=== PATIENT | male | born 1950 | race Caucasian/White ===

== ENCOUNTER → 2018-05-24 | Outpatient (CLI) | payer OTHER ==
[~2018-05-24] MED LIST: AMLO5TAB3 PO; ASPI81TA28 PO; ATEN50TA8 PO; ATOR10TA82 PO; BCTROWC TOP; CLOB-65 TOP; POTA10CA28 PO; RIVA1TAB4 PO; [UNRECOGNIZED DRUG - CODE] PO
--- NOTE | 2018-05-24 12:36 | DIAGNOSTIC IMAGING REPORT ---
CHEST 2 VIEWS ROUTINE CLINICAL HISTORY: R06.2, R00.0 WHEEZING, TACHYCARDIA. COMPARISON STUDY: No previous studies for comparison. FINDINGS: The heart is enlarged. There is subtle subpleural septal edema. There is no focal pulmonary consolidation. There are no significant pleural effusions.[ There are left-sided rib deformities, likely old. IMPRESSION: 1. Cardiomegaly and subtle subpleural septal edema 2. No evidence of focal pulmonary consolidation Electronically signed by: Natan Gonzalez M.D. 05/24/2018 12:34 PM Dictated Date/Time: 05/24/2018 12:33 PM
== END | disposition home or self-care (01) ==
LOC: C.RAD1850 12:13
PROVIDERS: ATTEND Nurse Practitioner Adult Health
DX: R00.0 Tachycardia, unspecified (principal); R06.2 Wheezing; I51.7 Cardiomegaly

== ENCOUNTER → 2018-06-09 | Outpatient (CLI) | payer BC, OTHER ==
--- NOTE | 2018-06-09 11:45 | DIAGNOSTIC IMAGING REPORT ---
ULTRASOUND KIDNEYS AND BLADDER CLINICAL HISTORY: Elevated creatinine. COMPARISON STUDY: No priors. TECHNIQUE: Real-time, grayscale, and color flow sonography of the kidneys and bladder is performed. Images are reviewed in the transverse and longitudinal planes. FINDINGS: Kidneys: The kidneys demonstrate mild cortical atrophy. The right kidney measures 10.5 x 5.1 x 4.9 cm and the left kidney measures 10.9 x 5.6 x 6.2 cm. There is no hydronephrosis. No shadowing renal calculi are identified. There are small left renal cysts measure up to 2.1 cm. There is no sonographic evidence of contour deforming renal mass lesion. No perinephric fluid is identified. Bladder: The prostate gland is mildly enlarged and heterogeneous, noting median lobe hypertrophy. The bladder wall appears thickened and trabeculated suggesting chronic outlet obstruction. Bilateral ureteral jets were seen. IMPRESSION: 1. The kidneys demonstrate mild cortical atrophy and are without hydronephrosis. 2. Prostatomegaly with evidence of chronic bladder outlet obstruction. Electronically signed by: Ankit Marvin M.D. 06/09/2018 11:43 AM Dictated Date/Time: 06/09/2018 11:42 AM
== END | disposition home or self-care (01) ==
LOC: C.ULTR 10:53
PROVIDERS: ATTEND Internal Medicine Nephrology
DX: R79.89 Other specified abnormal findings of blood chemistry (principal); N40.1 Benign prostatic hyperplasia with lower urinary tract symptoms

== ENCOUNTER → 2018-06-09 | Outpatient (CLI) | payer BC ==
[2018-06-09 09:35] LABS: MEAN CELL VOLUME 81.1 fL (80-100); MEAN CORPUSCULAR HEMOGLOBIN 28.6 pg (25-34); MEAN CORPUSCULAR HGB CONC 35.3 g/dl (32-36); MEAN PLATELET VOLUME 11.5 fL (7.4-10.4); PLATELET COUNT 187 K/uL (130-400); RED CELL DISTRIBUTION WIDTH CV 13.6 % (11.5-14.5); RED CELL DISTRIBUTION WIDTH SD 40.4 fL (36.4-46.3); WHITE BLOOD COUNT 7.43 K/uL (4.8-10.8)
[2018-06-09 09:53] LABS: ALBUMIN 4.1 gm/dl (3.4-5.0); ALKALINE PHOSPHATASE 112 U/L (45-117); ALT/SGPT 50 U/L (12-78); AST/SGOT 28 U/L (15-37); BLOOD UREA NITROGEN 26 mg/dl (7-18); CALCIUM 8.8 mg/dl (8.5-10.1); CARBON DIOXIDE 27 mmol/L (21-32); CREATININE 1.55 mg/dl (0.60-1.40); GLUCOSE 93 mg/dl (70-99); POTASSIUM 3.3 mmol/L (3.5-5.1); SODIUM 142 mmol/L (136-145); TOTAL PROTEIN 7.2 gm/dl (6.4-8.2)
== END | disposition home or self-care (01) ==
LOC: C.LAB1850 08:18
PROVIDERS: ATTEND Internal Medicine Nephrology
DX: R79.89 Other specified abnormal findings of blood chemistry (principal)

== ENCOUNTER 2022-02-20 20:33 | Observation (INO) ==
[2022-02-20 21:08] LABS: Basophils % (auto) 1.3 %; Eosinophils # (auto) 0.38 K/uL (0-0.5); Hematocrit (blood only) 46.1 % (42-52); Immature Granulocytes # (auto) 0.01 K/uL (0.00-0.02); Immature Granulocytes % (auto) 0.1 %; Lymphocytes # (auto) 1.53 K/uL (1.2-3.4); Lymphocytes % (auto) 20.2 %; Mean Corpuscular Hgb Conc 34.7 g/dL (32-36); Mean Corpuscular Volume 83.5 fL (80-100); Mean Platelet Volume 11.1 fL (7.4-10.4); Monocytes # (auto) 0.66 K/uL (0.11-0.59); Monocytes % (auto) 8.7 %; Neutrophils # (auto) 4.91 K/uL (1.4-6.5); Neutrophils % (auto) 64.7 %; Platelet Count 205 K/uL (130-400); RDW Coefficient of Variation 13.4 % (11.5-14.5); RDW Standard Deviation 40.7 fL (36.4-46.3); Red Blood Count 5.52 M/uL (4.7-6.1); White Blood Count 7.59 K/uL (4.8-10.8)
--- NOTE | 2022-02-20 21:36 | Emergency Department Note ---
History of Present Illness General Chief complaint: Cardiac Assessment Time Seen by Provider: 02/20/22 20:45 Source: patient History of Present Illness Provider complaint: Defibrillator fired Onset (ago): hour(s) Location: chest Pain Consistency: + intermittent and + now resolved Quality: + other (Defibrillator fired) Exacerbated By: + none Associated symptoms: no chest pain, no cough, no fever/chills, no nausea/vomiting, no shortness of breath, no syncope or no weakness This is a 71-year-old male with a history of ventricular tachycardia with an implantable defibrillator. He stated that his defibrillator fired today while he was in the shower. He had no symptoms when it occurred. He got out of the shower and it fired 3 more times. Each time he had no symptoms. He did not feel lightheaded or weak. He did not pass out. He has no chest pain or shortness of breath. He states he has been feeling well all day. He has had no fever, cough or cold symptoms, abdominal pain, vomiting, diarrhea or urinary sy mptoms. He does state that he had dizziness so month ago and he was taken off his digoxin and his losartan was doubled. He has been taking his pulse and he noted that his pulse today was about 85 and it is normally in the 70s. Home Medications Medication Instructions Recorded Confirmed Type aspirin 81 mg chewable tablet 81 mg PO DAILY #30 tab 11/14/19 02/20/22 Rx acetaminophen 325 mg tablet 650 mg PO Q6H PRN tab 12/08/19 02/20/22 History (Tylenol) metolazone 2.5 mg tablet 2.5 mg PO DAILY PRN #30 tab 03/13/20 02/20/22 Rx tamsulosin 0.4 mg capsule 0.4 mg PO DAILY #90 cap 02/14/21 02/20/22 Rx bumetanide 1 mg tablet 3 mg PO DAILY #270 tab 03/04/21 02/20/22 Rx atorvastatin 10 mg tablet 10 mg PO DAILY #90 tab 06/20/21 02/20/22 Rx metoprolol succinate 200 mg 200 mg PO BID #180 tab 11/22/21 02/20/22 Rx tablet,extended release 24 hr losartan 25 mg tablet 50 mg PO DAILY 02/20/22 02/20/22 History potassium chloride 10 mEq 30 meq PO QAM 02/20/22 02/20/22 History capsule,extended release potassium chloride 10 mEq 40 meq PO QPM 02/20/22 02/20/22 History capsule,extended release rivaroxaban 15 mg tablet 15 mg PO DAILYBD 02/20/22 02/20/22 History Allergies Allergy/AdvReac Type Severity Reaction Status Date / Time Latex, Natural Rubber Allergy Intermediate Rash Verified 02/20/22 23:34 amoxicillin Allergy Mild Rash Verified 02/20/22 23:34 minocycline Allergy Unknown Unknown Verified 02/20/22 23:34 lisinopril AdvReac Unknown URINARY Verified 02/20/22 23:34 RETENTION Past Med/Surg History Medical History (Updated 02/21/22 @ 02:41 by Neil Ontiveros MD) BPH (benign prostatic hyperplasia) Chronic kidney disease, stage III (moderate) Coronary artery embolism with myocardial infarction (2018) Dyspnea Elevated creatine kinase level Esophageal reflux History of eustachian tube dysfunction History of herpes labialis History of oral aphthous ulcers History of tachycardia History of tinea corporis Hyperlipidemia Hypertension Hypokalemia Ischemic 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 (2018) EF=45% October 2019 [facility] current use of anticoagulants with INR goal of 2.0-3.0 Numbness and tingling of right upper extremity Permanent atrial fibrillation Plantar fasciitis Recurrent ventricular tachycardia (2019) Secondary hyperparathyroidism Sinus congestion Sleeping difficulty SOB (shortness of breath) on exertion Vitamin D deficiency disease Volume overload Witnessed apneic spells Surgical History S/P ascending aortic aneurysm repair (2019) Family History Mother Hypertension Brother Hypertension Aortic aneurysm Father Lung cancer Sister Aortic aneurysm Other Myocardial infarction Denies family history of Ovarian cancer Prostate cancer Breast cancer Social History Smoking Status: Never smoker Second Hand Exposure: No; Hx Alcohol Use: Yes Alcohol type: wine Alcohol Intake Frequency: 2-4 x/Month Hx Substance Use: No Preferred Language: Mosotho Communication Ability: Effective Visual Impairment: No Limitations Hearing Ability: Normal 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 and A total of 10 systems reviewed and were otherwise negative Physical Exam Vital Signs Vital Signs - 24 hr 02/20/22 20:43 02/20/22 20:46 02/20/22 22:00 Temperature 37.2 C Temperature Source Oral Pulse Rate 108 H 115 H 90 Pulse Rate from SpO2 Sensor 113 H 80 Respiratory Rate 15 20 15 Respiratory Effort / Characteristics Non-Labored Spontaneous Respiratory Depth Normal Blood Pressure 164/103 H Blood Pressure Mean 123 Pulse Oximetry 94 94 95 Oxygen Delivery Method Room Air Room Air Room Air Sepsis New/Unexplained Change in Mental Status N/A Sepsis Action Taken by Nursing No Action Required 02/20/22 22:15 02/20/22 23:00 Temperature Temperature Source Pulse Rate 87 91 H Pulse Rate from SpO2 Sensor Respiratory Rate 18 12 Respiratory Effort / Characteristics Respiratory Depth Blood Pressure 149/111 H 158/112 H Blood Pressure Mean 123 127 Pulse Oximetry 95 94 Oxygen Delivery Method Room Air Room Air Sepsis New/Unexplained Change in Mental Status Sepsis Action Taken by Nursing Constitutional: Vital signs reviewed. Eyes: Pupils are equal round reactive to light. Conjunctiva are noninjected. ENT: Pharynx is clear without erythema or exudate. Mucous membranes are moist. Neck supple without meningeal signs. Respiratory: Clear to auscultation bilaterally. Breath sounds are equal bilaterally. Cardiovascular: Tachycardic. Regular rhythm. Heart rate 106. Extrasystoles noted. GI: Soft, nondistended and nontender. Bowel sounds are present. Musculoskeletal: No peripheral edema. No lower extremity tenderness. Integumentary: No cyanosis. or jaundice. Neurological: The patient is awake and alert. No focal deficits. Psychiatric: Normal affect. Not anxious appearing. Medical Decision Making Differential Diagnosis Dysrhythmia, ventricular tachycardia, A. fib with aberrancy, AICD malfunction, electrolyte abnormality Medical Records Attestation: I reviewed the patient's medical records. I did perform a limited focused review of portions of the patient's old chart on the electronic medical record. The patient was seen by Dr. Gonzalez of cardiology January 14. He reported vertigo and was taken off his digoxin and his losartan was doubled to 50 mg. Home Medications Current Medication List: was personally reviewed by me Laboratory Data Attestation: I reviewed the patient's lab results. Result diagrams: 02/20/22 20:40 02/20/22 20:40 Lab Results 02/20/22 02/20/22 02/20/22 Range/Units 20:40 20:40 23:20 WBC 7.59 (4.8-10.8) K/uL RBC 5.52 (4.7-6.1) M/uL Hgb 16.0 (14.0-18.0) g/dL Hct 46.1 (42-52) % MCV 83.5 (80-100) fL MCH 29.0 (25-34) pg MCHC 34.7 (32-36) g/dL RDW Std Deviation 40.7 (36.4-46.3) fL RDW Coeff of Lorrie 13.4 (11.5-14.5) % Plt Count 205 (130-400) K/uL MPV 11.1 H (7.4-10.4) fL Immature Gran % (Auto) 0.1 % Neut % (Auto) 64.7 % Lymph % (Auto) 20.2 % [place] % (Auto) 8.7 % Eos % (Auto) 5.0 % Baso % (Auto) 1.3 % Neut # (Auto) 4.91 (1.4-6.5) K/uL Lymph # (Auto) 1.53 (1.2-3.4) K/uL [place] # (Auto) 0.66 H (0.11-0.59) K/uL Eos # (Auto) 0.38 (0-0.5) K/uL Baso # (Auto) 0.10 (0-0.2) K/uL Immature Gran # (Auto) 0.01 (0.00-0.02) K/uL Sodium 138 (136-145) mmol/L Potassium 3.8 (3.5-5.1) mmol/L Chloride 104 (98-107) mmol/L Carbon Dioxide 25 (21-32) mmol/L Anion Gap 9 (3-11) BUN 24 H (6-23) mg/dl Creatinine 1.43 H (0.6-1.4) mg/dl Est Cr Clr Drug Dosing 60.6 ml/min Est GFR ( Amer) 56.7 ml/min Est GFR (Non-Af Amer) 48.9 ml/min BUN/Creatinine Ratio 16.8 (10-20) Glucose 117 H (70-99(Fasting)) mg/dl Calcium 8.7 (8.5-10.1) mg/dl Magnesium 2.2 (1.7-2.4) mg/dl Total Bilirubin 1.1 H (0.2-1.0) mg/dl AST 19 (13-39) U/L ALT 22 (7-52) U/L Alkaline Phosphatase 120 H (34-104) U/L Troponin I High Sens 29.0 H (0-20) pg/ml Total Protein 7.0 (6.0-8.3) gm/dl Albumin 4.3 (3.4-5.0) gm/dl Globulin 2.7 (2.5-4.0) gm/dl Albumin/Globulin Ratio 1.6 (0.9-2) SARS-CoV-2, RNA, NAAT NEGATIVE (NEGATIVE) Imaging Data Attestation: I personally reviewed and interpreted this imaging study as follows: My Impression: Chest x-ray per my interpretation shows no acute cardiopulmonary process. Pacemaker leads are in place ECG Data Attestation: I personally reviewed and interpreted this ECG as follows: Indication: + other (Defibrillator fired) Rate (beats per minute): 108 Rhythm: + atrial fibrillation ECG [place]: + Normal ECG ST segments: + T-wave inversions and + Nonspecific ST abnormalities Comparison ECG Date: from (April 16, 2020) Change: the following changes noted (Previously with a left bundle branch block) Additional Comments: Repeat twelve-lead EKG performed at 2310 per my interpretation shows atrial fibrillation with occasional ventricular paced complexes. Rate is 96. Continued nonspecific ST-T wave changes as noted previously. MDM Narrative I did evaluate the patient as noted above. He is presenting with discharge of his defibrillator 4 times today. Once was while he was taking a shower and 3 times after that while he was sitting. IV access was established. I did place an order for continuous cardiac monitoring. The monitor showed atrial fibrillation with PVCs at a rate of 103 bpm. I did order and personally review the patient's 12-lead EKG as described above. He has A. fib with nonspecific ST-T wave changes. I did repeat another twelve-lead EKG later which showed the same findings as noted above. I did order and personally reviewed the images of the patient's chest x-ray as described above. Pacemaker leads are in place. I did order and review the patient's blood work as noted in the electronic medical record. CBC is unremarkable without leukocytosis or anemia. Electrolytes are unremarkable. Creatinine is at baseline at 1.43. High-sensitivity troponin is elevated at 29. The patient denies having any chest pain other than from the electrical discharge. Pacemaker interrogation was obtained. The interrogation revealed ventricular dysrhythmia. He also had significantly elevated atrial rates. I did discuss this with the registered representative who felt that this was likely A. fib with aberrancy. I did discuss case with Dr. Gasca of cardiology. He knows the patient well. He does state that the patient has a long history of rate control with atrial fibrillation. He did not recommend any treatment with medications at this time and recommended bed rest. I did discuss the case with the hospitalist and case folder. Impression & Plan AICD discharge, Chronic kidney disease, Elevated troponin, Atrial fibrillation, Cardiac dysrhythmia Discharge Plan Visit Data Chief Complaint: Cardiac Assessment ED Provider: Neil Ontiveros Discharge Problem: AICD discharge, Chronic kidney disease, Elevated troponin, Atrial fibrillation, Cardiac dysrhythmia Patient Disposition: Being Evaluated by Hospitalist Discharge Instructions Interventions: ED Discharge Assessment Last Done: 02/21/22 01:40
[2022-02-20 21:39] LABS: Albumin Globulin Ratio 1.6 (0.9-2); Albumin Level 4.3 gm/dl (3.4-5.0); BUN Creatinine Ratio 16.8 (10-20); Bilirubin,Total 1.1 mg/dl (0.2-1.0); Calcium 8.7 mg/dl (8.5-10.1); Creatinine Clr Calc Pharmacy 60.6 ml/min; Est GFR (African American) 56.7 ml/min; Est GFR (Non-African American) 48.9 ml/min; Globulin 2.7 gm/dl (2.5-4.0); Magnesium 2.2 mg/dl (1.7-2.4); Potassium 3.8 mmol/L (3.5-5.1)
--- NOTE | 2022-02-20 23:59 | History & Physical Report ---
Date of Service February 20, 2022 Assessment & Plan (1) Defibrillator discharge: Plan: 71 year old male w/ TR, HFrEF, CAD, CKD, GERD, permanent afib on Xarelto, HTN who presents after his pacemaker defibrillator discharged. ICD (10/27/2019): [employer] Vigilant EL ICD dual-chamber device. - ED discussed w/ Dr. Gasca from cardiology. Believes more likely from afib RVR w/ high rate which patient has had hx of as opposed to v tach. Device interrogated in ED. - considered but lower suspicion for ischemia, electrolyte abnormalities, or volume disturbances; although patient does not appear hypervolemic on exam at this time, he has low threshold for CHF exac - regarding afib rvr; patient is on high dose regimen at baseline w/ 200mg metoprolol succinate BID. His digoxin was discontinued a month ago. - likely responsible for slight elevation in HS trop 29. will repeat in 8 hours - consult cardiology - monitor on telemetry (2) Permanent atrial fibrillation: Plan: - continue home anticoag (3) Congestive heart failure: Plan: - 12/21/20 echo [facility]: EF 35%. Mild to moderately dilated LV w/ moderated reduced systolic function. Anteroseptal akinesis w/ distal anterior wall apicla aneurysm. Mild concentric LVH. Dilated right ventricle w/ reduced systolic function. Severe biatrial dilation. Mild AR. Severe central to posteriorly directed MR likely due to restricted posterior leaflet and annular dilation. Moderate to severe TR. Normal estimated PAP, although likely underestimated. - has bumex 3mg daily on home meds list - patient states he takes 3mg MWF and 2mg on other days. Patient will clarify w/ pcp. Continue at 3mg daily for now. (4) Ischemic 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: Plan: - per cardiology: "Cardiac catheterization (10/24/2019): Occlusion of the distal LAD felt to be potentially embolic. The RCA provided minor collaterals and there were ectatic coronary vessels with diffuse but nonocclusive disease." - continue home beta jefferson and daily baby asa (5) Chronic kidney disease, stage III (moderate): Plan: - no dose adjustment for xarelto at this time given CrCl>50. follow bmp - if renal function worsens (per chart review has had Cr in the 2s), may need adjustment or consideration of alternative (6) Hypertension: Plan: - continue home regimen (7) BPH (benign prostatic hyperplasia): Plan: - continue home tamsulosin. pt states takes only MWF and will discuss w/ pcp. Continue daily for now. (8) Witnessed apneic spells: Plan: - chronic. f/u w/ pcp Plan: FEN: HH, low Na ppx: home Xarelto code: full dispo: med tele History of Present Illness Chief Complaint: defibrillator discharge Primary Care Provider: Andria Mckeon MD 71 year old male w/ HTN, HFrEF, CAD, CKD, GERD, aorta repair, and permanent afib on Xarelto who presents after his pacemaker defibrillator discharged x 4 times this evening. This occurred while he was taking a shower at 7:45pm. He was asymptomatic otherwise and denies chest pain, SOB, palpitations. Denies hx of prior shocks. He had this device for 2 years. He follows Drs. Gonzalez and Campos from [facility].He had some vertigo a month ago and Digoxin was stopped since; the vertigo resolved after 2 weeks. Denies recent illness. He states he is at baseline health. Patient does have history of recurrent tachycardia. He had hx of v tach, but has had ablation for this. ED course: ED reached out to Dr. Gasca. Device was interrogated. Per Dr. Gasca, defibrillator discharge was more likely due to high rate of afib and less likely v tach. He will follow in the morning. Per EMS report, patient was in afib rvr w/ rates 140s-170 at arrival. Patient took his home medications including his PM metoprolol and Xarel to prior to ED arrival. Allergies Allergy/AdvReac Type Severity Reaction Status Date / Time Latex, Natural Rubber Allergy Intermediate Rash Verified 02/20/22 23:34 amoxicillin Allergy Mild Rash Verified 02/20/22 23:34 minocycline Allergy Unknown Unknown Verified 02/20/22 23:34 lisinopril AdvReac Unknown URINARY Verified 02/20/22 23:34 RETENTION Home Medications Medication Instructions Recorded Confirmed Type aspirin 81 mg chewable tablet 81 mg PO DAILY #30 tab 11/14/19 02/20/22 Rx acetaminophen 325 mg tablet 650 mg PO Q6H PRN tab 12/08/19 02/20/22 History (Tylenol) metolazone 2.5 mg tablet 2.5 mg PO DAILY PRN #30 tab 03/13/20 02/20/22 Rx tamsulosin 0.4 mg capsule 0.4 mg PO DAILY #90 cap 02/14/21 02/20/22 Rx bumetanide 1 mg tablet 3 mg PO DAILY #270 tab 03/04/21 02/20/22 Rx atorvastatin 10 mg tablet 10 mg PO DAILY #90 tab 06/20/21 02/20/22 Rx metoprolol succinate 200 mg 200 mg PO BID #180 tab 11/22/21 02/20/22 Rx tablet,extended release 24 hr losartan 25 mg tablet 50 mg PO DAILY 02/20/22 02/20/22 History potassium chloride 10 mEq 30 meq PO QAM 02/20/22 02/20/22 History capsule,extended release potassium chloride 10 mEq 40 meq PO QPM 02/20/22 02/20/22 History capsule,extended release rivaroxaban 15 mg tablet 15 mg PO DAILYBD 02/20/22 02/20/22 History Past Med/Surg History Medical History (Updated 02/21/22 @ 02:51 by Bimal Pathak MD) BPH (benign prostatic hyperplasia) Chronic kidney disease, stage III (moderate) Congestive heart failure Coronary artery embolism with myocardial infarction (2018) Dyspnea Elevated creatine kinase level Esophageal reflux History of eustachian tube dysfunction History of herpes labialis History of oral aphthous ulcers History of tachycardia History of tinea corporis Hyperlipidemia Hypertension Hypokalemia 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 (2019) 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% 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 with INR goal of 2.0-3.0 Numbness and tingling of right upper extremity Permanent atrial fibrillation Plantar fasciitis Recurrent ventricular tachycardia (2019) Secondary hyperparathyroidism Sinus congestion Sleeping difficulty SOB (shortness of breath) on exertion Vitamin D deficiency disease Volume overload Witnessed apneic spells Surgical History S/P ascending aortic aneurysm repair (2019) Family History Mother Hypertension Brother Hypertension Aortic aneurysm Father Lung cancer Sister Aortic aneurysm Other Myocardial infarction Denies family history of Ovarian cancer Prostate cancer Breast cancer Social History Smoking Status: Never smoker Second Hand Exposure: No; Hx Alcohol Use: Yes Alcohol type: wine Alcohol Intake Frequency: 2-4 x/Month Hx Substance Use: No Preferred Language: Romanian Communication Ability: Effective Visual Impairment: No Limitations Hearing Ability: Normal Legal Activity Adjudicator Required: No Beliefs That Will Affect Care: None marital status: Current Living Situation: Spouse current occupational status: retired Feels Safe at Home: Yes Childhood Exposure to Second-Hand Smoke: Yes Dental Care, Regularly: Yes Physical Activity Frequency: 3-4 Times per Week Seatbelt Use: always Sunscreen Use: Yes Assistive Devices: Glasses Review of Systems Review of Systems: All systems reviewed & are unremarkable except as noted in HPI & below endorses witnessed apneic episodes during sleep Physical Exam Physical Exam: General: Grossly A&O. NAD. Cooperative. HEENT: Atraumatic, normocephalic. EOMI Pulm: -wheezes, -rales, -rhonchi. + transmitted upper airways sounds on expiration. Clear to auscultation otherwise and w/o crackles. Loud breathing. No respiratory distress. Cardiac: RRR, -mrg. Radial pulses intact and symmetrical. No LE edema. Abdominal: Nontender, nondistended, soft. Integ: Warm, dry, intact. Msk: Moving all extremities Results & Data Results & Data ([facility]) Vital Signs (Past 12 Hours) Vital Signs Temp Pulse Resp BP Pulse Ox 02/20/22 23:00 91 H 12 158/112 H 94 02/20/22 22:15 87 18 149/111 H 95 02/20/22 22:00 90 15 95 02/20/22 20:46 115 H 20 94 02/20/22 20:43 37.2 C 108 H 15 164/103 H 94 Laboratory Results 02/20/22 20:40 02/20/22 20:40 Cardiac Enzymes 02/20/22 Range/Units 20:40 AST 19 (13-39) U/L CBC 02/20/22 Range/Units 20:40 WBC 7.59 (4.8-10.8) K/uL RBC 5.52 (4.7-6.1) M/uL Hgb 16.0 (14.0-18.0) g/dL Hct 46.1 (42-52) % Plt Count 205 (130-400) K/uL Neut # (Auto) 4.91 (1.4-6.5) K/uL Lymph # (Auto) 1.53 (1.2-3.4) K/uL Rush # (Auto) 0.66 H (0.11-0.59) K/uL Eos # (Auto) 0.38 (0-0.5) K/uL Baso # (Auto) 0.10 (0-0.2) K/uL Comprehensive Metabolic Panel 02/20/22 Range/Units 20:40 Sodium 138 (136-145) mmol/L Potassium 3.8 (3.5-5.1) mmol/L Chloride 104 (98-107) mmol/L Carbon Dioxide 25 (21-32) mmol/L BUN 24 H (6-23) mg/dl Creatinine 1.43 H (0.6-1.4) mg/dl Glucose 117 H (70-99(Fasting)) mg/dl Calcium 8.7 (8.5-10.1) mg/dl AST 19 (13-39) U/L ALT 22 (7-52) U/L Alkaline Phosphatase 120 H (34-104) U/L Total Protein 7.0 (6.0-8.3) gm/dl Albumin 4.3 (3.4-5.0) gm/dl Intake and Output 02/20/22 02/20/22 02/21/22 14:59 22:59 06:59 Other: Weight 106.1 kg Weight Measurement Method Built in [facility] Patient Weight 02/21/22 06:59 Weight 106.1 kg Diagnostic Findings cxr per my interpreation: cardiomegaly. sternal wires noted. otherwise, normal cxr ECG Additional Comments: ecg per my interpretation afib 96 w/ ventricular pacing. prolonged qtc 482 Code Status & VTE Plan Code Status full VTE Prophylaxis Plan VTE Prophylaxis will be ordered: Yes Supervising Physician Co-Signing Physician Notes Patient seen and examined, chart reviewed, case discussed with Dr. Pathak and I agree with his assessment and plan as documented above. In brief, patient is a 71-year-old male with history of permanent atrial fibrillation on anticoagulation, status post repair of a sending aortic aneurysm at in 2019. Patient had a presumed embolic occlusion of the LAD with refractory VT requiring ICD placement, subsequent VT status post ablation x2. Patient presents today after AICD firing x4. He denies chest pain, palpitations, dizziness or syncope. No recent illness. No complaints at this time. On exam patient is afebrile, hemodynamically stable, no acute distress. On monitor he appears to be in atrial fibrillation, rate controlled with occasional PVC Skinwarm, dry, intact, no rash or lesions HEENTnormocephalic/atraumatic, pupils equal and reactive, moist mucous membranes, neck supple Heart+ S1, S2, irregular, 2 out of 6 blowing murmur at apex Lungsclear to auscultation Abdomen+ bowel sounds, soft, nontender, nondistended Extremitieswarm, well-perfused, no clubbing/cyanosis/edema Labs and images reviewed. BUN and creatinine are mildly elevated, improved from prior. Electrolytes are within normal limits. High-sensitivity troponin mildly elevated at 29 Assessment/plan: 71-year-old male with history of VT status post AICD placement presenting with AICD discharge x4. Arrhythmia reviewed by cardiologyfelt to be secondary to A. fib with RVR rather than ventricular rhythm Maintain electrolytes Trend troponin Cardiology consultation appreciated Continue home medications Remainder of plan as above Resident Activity Tracking Resident Involvement: Resident Care Provided Care Provided: Adult Hospital Medicine (1) Hypertension Hypertension type: essential hypertension Qualified Code(s): I10 - Essential (primary) hypertension
[2022-02-21] MEDS ORDERED: POTASSIUM CHLORIDE CRTAB 20 MEQ TABCR PO STA (02:44)
[2022-02-21] MEDS ORDERED: ACETAMINOPHEN 325 MG TAB PO PRN (02:57)
[2022-02-21] MEDS ORDERED: ONDANSETRON INJ 2 MG/ML 2 ML VIAL IV PRN (02:57)
--- NOTE | 2022-02-21 03:37 | Billing Data ---
Date of Service February 20, 2022 Coding Level of Care Code INT OBSERVATION CARE 70M LVL 3
[2022-02-21 05:41] LABS: Hematocrit (blood only) 44.6 % (42-52); Hemoglobin 15.3 g/dL (14.0-18.0); Mean Corpuscular Hemoglobin 29.1 pg (25-34); Mean Corpuscular Hgb Conc 34.3 g/dL (32-36); Mean Platelet Volume 11.1 fL (7.4-10.4); Platelet Count 181 K/uL (130-400); RDW Coefficient of Variation 13.5 % (11.5-14.5); RDW Standard Deviation 41.9 fL (36.4-46.3); Red Blood Count 5.25 M/uL (4.7-6.1); White Blood Count 7.42 K/uL (4.8-10.8)
[2022-02-21 06:08] LABS: Albumin Globulin Ratio 1.6 (0.9-2); Albumin Level 3.9 gm/dl (3.4-5.0); BUN Creatinine Ratio 14.7 (10-20); Bilirubin,Total 1.4 mg/dl (0.2-1.0); Calcium 8.4 mg/dl (8.5-10.1); Creatinine Clr Calc Pharmacy 67.6 ml/min; Est GFR (African American) 64.2 ml/min; Est GFR (Non-African American) 55.4 ml/min; Globulin 2.4 gm/dl (2.5-4.0); Magnesium 2.1 mg/dl (1.7-2.4); Potassium 3.8 mmol/L (3.5-5.1); Total Protein 6.3 gm/dl (6.0-8.3)
--- NOTE | 2022-02-21 06:45 | Communication Note ---
Date of Service: February 21, 2022 elevated bp 188/122 was on R arm after recent transfer per nursing. Repeat bp at 6:23 AM 147/91 on left arm and 158/100 on right arm. no prn bp med indicated. notified of elevated hs trop to 213.1. asymptomatic. No chest pain, SOB, or other pain. most likely 2/2 defibrillator discharge yesterday. ordering repeat hs trop in 6 hours.
--- NOTE | 2022-02-21 07:41 | XRay Report ---
SINGLE VIEW CHEST CLINICAL HISTORY: Dysrhythmia. FINDINGS: An AP, portable, upright chest radiograph is compared to study dated 02/08/2020. The examinat ion is degraded by portable technique and apical lordotic positioning. The patient is status post mid line sternotomy. A 2-lead cardiac AICD is unchanged in position. The heart is enlarged noting atheros clerotic calcification of the thoracic aorta. The pulmonary vasculature is noncongested. Chronic inte rstitial thickening is similar to previous. There is mild bibasilar atelectasis. The lungs and pleura l spaces are otherwise clear. No pneumothorax is seen. The skeletal structures are osteopenic. The [place] thorax is grossly intact. IMPRESSION: 1. Cardiomegaly and AICD with no radiographic evidence of congestive failure. 2. No airspace consolidation or large pleural effusion is identified. ACT 112: Negative or not required by law. Electronically signed by: Ankit Marvin M.D. 02/21/2022 7:39 AM
[2022-02-21] MEDS ORDERED: ASPIRIN 81 MG CHEW PO SCH (09:00)
[2022-02-21] MEDS ORDERED: BUMETANIDE 1 MG TAB PO SCH (09:00)
[2022-02-21] MEDS ORDERED: LOSARTAN POTASSIUM 50 MG TAB PO SCH (09:00)
[2022-02-21] MEDS ORDERED: ATORVASTATIN 10 MG TAB PO SCH (09:00)
[2022-02-21] MEDS ORDERED: TAMSULOSIN HCL 0.4 MG CAP PO SCH (09:00)
[2022-02-21] MEDS ORDERED: METOPROLOL SUCC 50MG EXT REL TAB PO SCH (09:00)
[2022-02-21] MEDS ORDERED: dilTIAZem ER 120 MG CAPCR PO SCH (12:00)
[2022-02-21] MEDS ORDERED: DIGOXIN 250 MCG in SYRINGE 9 ML IV ONE (12:00)
--- NOTE | 2022-02-21 12:11 | Electrocardiogram Report ---
Test Reason : Blood Pressure : / mmHG Vent. Rate : 108 BPM Atrial Rate : 105 BPM P-R Int : 000 ms QRS Dur : 086 ms QT Int : 366 ms P-R-T Axes : 000 020 150 degrees QTc Int : 490 ms Atrial fibrillation with rapid ventricular response Abnormal ECG When compared with ECG of 16-APR-2020 14:21, Left bundle branch block is no longer Present Confirmed by Maldonado Gasca ([id number]) on 02/21/2022 12:11:27 PM Referred By: REFERRED SELF Confirmed By:Hans Gasca
--- NOTE | 2022-02-21 12:12 | Electrocardiogram Report ---
Test Reason : Blood Pressure : / mmHG Vent. Rate : 096 BPM Atrial Rate : 047 BPM P-R Int : 000 ms QRS Dur : 088 ms QT Int : 382 ms P-R-T Axes : 000 002 146 degrees QTc Int : 482 ms Atrial fibrillation with occasional ventricular-paced complexes Prolonged QT Abnormal ECG When compared with ECG of 20-FEB-2022 20:40, (unconfirmed) Electronic ventricular pacemaker has replaced Atrial fibrillation Confirmed by Maldonado Gasca ([id number]) on 02/21/2022 12:12:04 PM Referred By: REFERRED SELF Confirmed By:Hans Gasca
--- NOTE | 2022-02-21 13:57 | Cardiology Consultation ---
Date of Consultation February 21, 2022 Assessment & Plan (1) AICD discharge: (2) Elevated troponin: (3) Atrial fibrillation: (4) Ventricular tachycardia: (5) Ischemic 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: 1. Defibrillator therapy: This was inappropriate. Review of the intracardiac electrograms revealed atrial fibrillation with high ventricular rates triggering device therapies. I suggested restarting the digoxin as this likely was not playing a role and is prior episodes of vertigo and dizziness. I also suggested adding a small dose of diltiazem at least temporarily until we can be confident the ventricular rates are better controlled. I raised the detection zone slightly on his device and added morphology discrimination as well. 2. Atrial fibrillation: He has had some difficulties with rate control before but they have not triggered device therapy. Unclear why it was markedly higher last evening. The use of calcium channel blockers is less desirable and individuals with an ischemic 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. However, I think in the short term this is important in order to avoid additional therapies. Another good option for treatment would be ablate and pace. He would likely need an upgrade of his device to a biventricular ICD. However, bleeding AV shweta would provide exquisite rate control and there will be no danger of additional therapies. I did mention this to the patient. He will continue systemic anticoagulation at reduced dose. 3. Coronary artery disease: His myocardial infarction was related to an embolic event. No current symptoms of angina or coronary insufficiency 4. Ischemic 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: He seems well compensated. Will continue on his current outpatient medical regimen which consists of losartan, bumetanide, metolazone on an as-needed basis metoprolol succinate 5. Ventricular tachycardia: He underwent an ablation x2. We have not actually seen any ventricular tachycardia in well over a year. Will administer a loading dose of digoxin now Will add long-acting diltiazem 120 mg daily Will resume his digoxin at 0.25 mg daily He has a follow-up appointment already scheduled for next week He was advised to refrain from significant physical activity. History of Present Illness Reason for Consultation: Defibrillator therapy Requesting Physician: Bong Attending Physician: Perico Ruiz History of Present Illness The patient is a 71-year-old individual with a complex medical history to include emergency surgery for aortic dissection, development of an ischemic 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 secondary to an embolic coronary event, recurrent ventricular tachycardia status post VT ablation x2 and permanent atrial fibrillation who experienced a fibrillator therapy last evening. The patient states that he was feeling well and in the shower when he began to experience therapy from his device. He was not aware of any palpitations. He did not endorse symptoms of dizziness, shortness of breath or chest pain. Defibrillator fired several times. He did not lose consciousness. Afterwards he had some discomfort in the left axilla and chest. This was positional in nature. He presented to the emergency room for evaluation. Remote interrogation of his device suggested that the therapy was inappropriate and related to high ventricular rates associated with atrial fibrillation. Patient otherwise claims to have been feeling well. He was evaluated were some vertiginous symptoms a few weeks ago. The etiology was initially unclear. Digoxin was discontinued at that point in time. His symptoms eventually resolved and have not recurred he has maintained usual level of activity. He did not report symptoms of orthostasis. He generally not aware of any palpitations. Obviously distressed regarding the events of last night. Allergies Allergy/AdvReac Type Severity Reaction Status Date / Time Latex, Natural Rubber Allergy Intermediate Rash Verified 02/20/22 23:34 amoxicillin Allergy Mild Rash Verified 02/20/22 23:34 minocycline Allergy Unknown Unknown Verified 02/20/22 23:34 lisinopril AdvReac Unknown URINARY Verified 02/20/22 23:34 RETENTION Home Medications Medication Instructions Recorded Confirmed Type aspirin 81 mg chewable tablet 81 mg PO DAILY #30 tab 11/14/19 02/20/22 Rx acetaminophen 325 mg tablet 650 mg PO Q6H PRN tab 12/08/19 02/20/22 History (Tylenol) metolazone 2.5 mg tablet 2.5 mg PO DAILY PRN #30 tab 03/13/20 02/20/22 Rx tamsulosin 0.4 mg capsule 0.4 mg PO DAILY #90 cap 02/14/21 02/20/22 Rx bumetanide 1 mg tablet 3 mg PO DAILY #270 tab 03/04/21 02/20/22 Rx atorvastatin 10 mg tablet 10 mg PO DAILY #90 tab 06/20/21 02/20/22 Rx metoprolol succinate 200 mg 200 mg PO BID #180 tab 11/22/21 02/20/22 Rx tablet,extended release 24 hr losartan 25 mg tablet 50 mg PO DAILY 02/20/22 02/20/22 History potassium chloride 10 mEq 30 meq PO QAM 02/20/22 02/20/22 History capsule,extended release potassium chloride 10 mEq 40 meq PO QPM 02/20/22 02/20/22 History capsule,extended release rivaroxaban 15 mg tablet 15 mg PO DAILYBD 02/20/22 02/20/22 History Patient History Medical History (Updated 02/21/22 @ 02:51 by Bimal Pathak MD) BPH (benign prostatic hyperplasia) Chronic kidney disease, stage III (moderate) Congestive heart failure Coronary artery embolism with myocardial infarction (2018) Dyspnea Elevated creatine kinase level Esophageal reflux History of eustachian tube dysfunction History of herpes labialis History of oral aphthous ulcers History of tachycardia History of tinea corporis Hyperlipidemia Hypertension Hypokalemia Ischemic 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 (2019) EF=45% October 2019 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 current use of anticoagulants with INR goal of 2.0-3.0 Numbness and tingling of right upper extremity Permanent atrial fibrillation Plantar fasciitis Recurrent ventricular tachycardia (2019) Secondary hyperparathyroidism Sinus congestion Sleeping difficulty SOB (shortness of breath) on exertion Vitamin D deficiency disease Volume overload Witnessed apneic spells Surgical History S/P ascending aortic aneurysm repair (2019) Family History Mother Hypertension Brother Hypertension Aortic aneurysm Father Lung cancer Sister Aortic aneurysm Other Myocardial infarction Denies family history of Ovarian cancer Prostate cancer Breast cancer Social History Smoking Status: Never smoker Second Hand Exposure: No; Hx Alcohol Use: Yes Alcohol type: wine Alcohol Intake Frequency: 2-4 x/Month Hx Substance Use: No Preferred Language: French Communication Ability: Effective Visual Impairment: No Limitations Hearing Ability: Normal Retanner Required: No Beliefs That Will Affect Care: None marital status: Current Living Situation: Spouse current occupational status: retired Feels Safe at Home: Yes Childhood Exposure to Second-Hand Smoke: Yes Dental Care, Regularly: Yes Physical Activity Frequency: 3-4 Times per Week Seatbelt Use: always Sunscreen Use: Yes Assistive Devices: None Review of Systems Review of Systems: Per HPI. Normal anxiety regarding the potential for recurrent events Physical Exam Physical Exam: The patient is alert and oriented. Mood and affect appeared normal. He answered all questions appropriately. HEENT: Pupils are equal and reactive to light and accommodation. Extraocular movements are intact. The sclerae are anicteric. Neuro: Cranial nerves intact Lungs: Normal respiratory effort Cardiac: Irregular rhythm Extremities: There was no evidence of hypoperfusion. There is no cyanosis or clubbing. There is no edema. Skin: I did not appreciate any rashes on examination today. Results & Data ([facility]) Vital Signs (Past 12 Hours) Vital Signs Temp Pulse Pulse Resp BP BP Pulse Ox 02/21/22 12:19 163/101 H 02/21/22 12:12 119 H 02/21/22 06:30 36.9 C 106 H 18 158/100 H 02/21/22 06:23 81 147/91 H 02/21/22 06:05 81 02/21/22 02:35 36.8 C 95 H 18 188/122 H 159/112 H 92 Laboratory Results Abnormal Lab Results 02/20/22 02/20/22 02/20/22 20:40 20:40 23:20 WBC 7.59 RBC 5.52 Hgb 16.0 Hct 46.1 MCV 83.5 MCH 29.0 MCHC 34.7 RDW Std Deviation 40.7 RDW Coeff of Lorrie 13.4 Plt Count 205 MPV 11.1 H Immature Gran % (Auto) 0.1 Neut % (Auto) 64.7 Lymph % (Auto) 20.2 Edmunds % (Auto) 8.7 Eos % (Auto) 5.0 Baso % (Auto) 1.3 Neut # (Auto) 4.91 Lymph # (Auto) 1.53 Edmunds # (Auto) 0.66 H Eos # (Auto) 0.38 Baso # (Auto) 0.10 Immature Gran # (Auto) 0.01 Sodium 138 Potassium 3.8 Chloride 104 Carbon Dioxide 25 Anion Gap 9 BUN 24 H Creatinine 1.43 H Est Cr Clr Drug Dosing 60.6 Est GFR ( Amer) 56.7 Est GFR (Non-Af Amer) 48.9 BUN/Creatinine Ratio 16.8 Glucose 117 H Calcium 8.7 Magnesium 2.2 Total Bilirubin 1.1 H AST 19 ALT 22 Alkaline Phosphatase 120 H Troponin I High Sens 29.0 H Total Protein 7.0 Albumin 4.3 Globulin 2.7 Albumin/Globulin Ratio 1.6 TSH SARS-CoV-2, RNA, NAAT NEGATIVE 02/21/22 02/21/22 02/21/22 05:26 05:26 05:26 WBC 7.42 RBC 5.25 Hgb 15.3 Hct 44.6 MCV 85.0 MCH 29.1 MCHC 34.3 RDW Std Deviation 41.9 RDW Coeff of Lorrie 13.5 Plt Count 181 MPV 11.1 H Immature Gran % (Auto) Neut % (Auto) Lymph % (Auto) Edmunds % (Auto) Eos % (Auto) Baso % (Auto) Neut # (Auto) Lymph # (Auto) Edmunds # (Auto) Eos # (Auto) Baso # (Auto) Immature Gran # (Auto) Sodium 139 Potassium 3.8 Chloride 105 Carbon Dioxide 29 Anion Gap 5 BUN 19 Creatinine 1.29 Est Cr Clr Drug Dosing 67.6 Est GFR ( Amer) 64.2 Est GFR (Non-Af Amer) 55.4 BUN/Creatinine Ratio 14.7 Glucose 92 Calcium 8.4 L Magnesium 2.1 Total Bilirubin 1.4 H AST 18 ALT 20 Alkaline Phosphatase 108 H Troponin I High Sens Total Protein 6.3 Albumin 3.9 Globulin 2.4 L Albumin/Globulin Ratio 1.6 TSH 3.005 SARS-CoV-2, RNA, NAAT 02/21/22 02/21/22 05:26 11:24 WBC RBC Hgb Hct MCV MCH MCHC RDW Std Deviation RDW Coeff of Lorrie Plt Count MPV Immature Gran % (Auto) Neut % (Auto) Lymph % (Auto) Edmunds % (Auto) Eos % (Auto) Baso % (Auto) Neut # (Auto) Lymph # (Auto) Edmunds # (Auto) Eos # (Auto) Baso # (Auto) Immature Gran # (Auto) Sodium Potassium Chloride Carbon Dioxide Anion Gap BUN Creatinine Est Cr Clr Drug Dosing Est GFR ( Amer) Est GFR (Non-Af Amer) BUN/Creatinine Ratio Glucose Calcium Magnesium Total Bilirubin AST ALT Alkaline Phosphatase Troponin I High Sens 213.1 H* D 181.0 H* Total Protein Albumin Globulin Albumin/Globulin Ratio TSH SARS-CoV-2, RNA, NAAT Diagnostic Findings Echocardiogram performed 12/21/2020: Ejection fraction 35%. Anteroseptal akinesis with distal anterior wall apical aneurysm. Mild LVH. Severe left atrial dilation. Severe right atrial dilation. PG Care Time/CCT Total # of Minutes Spent Total Time Spent with Patient: Total time spent is greater than 50% in coordination of care (as documented) at patient's floor/unit and/or counseling patient: Coding Level of Care Code 75700 Initial Inpt Care Lvl 3 Diagnoses AICD discharge Z45.02 Elevated troponin R77.8 Atrial fibrillation I48.11 Atrial fibrillation type: longstanding persistent Ventricular tachycardia I47.2 Ischemic 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 I25.5 CPT Codes Implantable Defib dual lead programming - 34062 ([id number]) 26 - PROFESSIONAL COMPONENT (1) Atrial fibrillation Atrial fibrillation type: longstanding persistent Qualified Code(s): I48.11 - Longstanding persistent atrial fibrillation
--- NOTE | 2022-02-21 14:54 | Discharge Summary ---
Date of Service February 21, 2022 Admission HPI Per Admitting Provider 71 year old male w/ HTN, HFrEF, CAD, CKD, GERD, aorta repair, and permanent afib on Xarelto who presents after his pacemaker defibrillator discharged x 4 times this evening. This occurred while he was taking a shower at 7:45pm. He was asymptomatic otherwise and denies chest pain, SOB, palpitations. Denies hx of prior shocks. He had this device for 2 years. He follows Drs. Gonzalez and Campos from [facility].He had some vertigo a month ago and Digoxin was stopped since; the vertigo resolved after 2 weeks. Denies recent illness. He states he is at baseline health. Patient does have history of recurrent tachycardia. He had hx of v tach, but has had ablation for this. ED course: ED reached out to Dr. Gasca. Device was interrogated. Per Dr. Gasca, defibrillator discharge was more likely due to high rate of afib and less likely v tach. He will follow in the morning. Per EMS report, patient was in afib rvr w/ rates 140s-170 at arrival. Patient took his home medications including his PM metoprolol and Xarelto prior to ED arrival. Principal Diagnosis defibrillator charge Discharge Exam General: Grossly A&O. NAD. Cooperative. HEENT: Atraumatic, normocephalic. EOMI Pulm: -wheezes, -rales, -rhonchi. + transmitted upper airways sounds on expiration. Clear to auscultation otherwise and w/o crackles. Loud breathing. No respiratory distress. Cardiac: RRR, -mrg. Radial pulses intact and symmetrical. No LE edema. Abdominal: Nontender, nondistended, soft. Integ: Warm, dry, intact. Msk: Moving all extremities Discharge Data Allergies Allergy/AdvReac Type Severity Reaction Status Date / Time Latex, Natural Rubber Allergy Intermediate Rash Verified 02/20/22 23:34 amoxicillin Allergy Mild Rash Verified 02/20/22 23:34 minocycline Allergy Unknown Unknown Verified 02/20/22 23:34 lisinopril AdvReac Unknown URINARY Verified 02/20/22 23:34 RETENTION Consultations 02/20/22 23:40 ED Decision to Admit Stat 02/21/22 02:37 Consult Cardiology Routine Hospital Course (1) Defibrillator discharge: 71 year old male w/ TR, HFrEF, CAD, CKD, GERD, permanent afib on Xarelto, HTN who presents after his pacemaker defibrillator discharged. ICD (10/27/2019): [employer] Vigilant EL ICD dual-chamber device. - ED discussed w/ Dr. Gasca from cardiology. Believes more likely from afib RVR w/ high rate which patient has had hx of as opposed to v tach. Device interrogated in ED. - considered but lower suspicion for ischemia, electrolyte abnormalities, or volume disturbances; although patient does not appear hypervolemic on exam at this time, he has low threshold for CHF exac - regarding afib rvr; patient is on high dose regimen at baseline w/ 200mg metoprolol succinate BID. His digoxin was discontinued a month ago. - likely responsible for slight elevation in HS trop 29. - consulted CARDIO: appreciate input. 1. Defibrillator therapy: This was inappropriate. Review of the intracardiac electrograms revealed atrial fibrillation with high ventricular rates triggering device therapies. I suggested restarting the digoxin as this likely was not playing a role and is prior episodes of vertigo and dizziness. I also suggested adding a small dose of diltiazem at least temporarily until we can be confident the ventricular rates are better controlled. I raised the detection zone slightly on his device and added morphology discrimination as well. 2. Atrial fibrillation: He has had some difficulties with rate control before but they have not triggered device therapy. Unclear why it was markedly higher last evening. The use of calcium channel blockers is less desirable and individuals with an ischemic 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. However, I think in the short term this is important in order to avoid additional therapies. Another good option for treatment would be ablate and pace. He would likely need an upgrade of his device to a biventricular ICD. However, bleeding AV shweta would provide exquisite rate control and there will be no danger of additional therapies. I did mention this to the patient. He will continue systemic anticoagulation at reduced dose. 3. Coronary artery disease: His myocardial infarction was related to an embolic event. No current symptoms of angina or coronary insufficiency 4. Ischemic 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: He seems well compensated. Will continue on his current outpatient medical regimen which consists of losartan, bumetanide, metolazone on an as-needed basis metoprolol succinate 5. Ventricular tachycardia: He underwent an ablation x2. We have not actually seen any ventricular tachycardia in well over a year. Will administer a loading dose of digoxin now Will add long-acting diltiazem 120 mg daily Will resume his digoxin at 0.25 mg daily He has a follow-up appointment already scheduled for next week He was advised to refrain from significant physical activity. Patient agrees with discharge plan. (2) Permanent atrial fibrillation: - continue home anticoag (3) Congestive heart failure: - 12/21/20 echo at [facility]: EF 35%. Mild to moderately dilated LV w/ moderated reduced systolic function. Anteroseptal akinesis w/ distal anterior wall apicla aneurysm. Mild concentric LVH. Dilated right ventricle w/ reduced systolic function. Severe biatrial dilation. Mild AR. Severe central to posteriorly directed MR likely due to restricted posterior leaflet and annular dilation. Moderate to severe TR. Normal estimated PAP, although likely underestimated. - has bumex 3mg daily on home meds list - patient states he takes 3mg MWF and 2mg on other days. Patient will clarify w/ pcp. Continue at 3mg daily for now. (4) Ischemic 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: - per cardiology: "Cardiac catheterization (10/24/2019): Occlusion of the distal LAD felt to be potentially embolic. The RCA provided minor collaterals and there were ectatic coronary vessels with diffuse but nonocclusive disease." - continue home beta jefferson and daily baby asa (5) Chronic kidney disease, stage III (moderate): - no dose adjustment for xarelto at this time given CrCl>50. (6) Hypertension: - continue home regimen (7) BPH (benign prostatic hyperplasia): - continue home tamsulosin. pt states takes only MWF and will discuss w/ pcp. Continue daily for now. (8) Witnessed apneic spells: - chronic. f/u w/ pcp FEN: HH, low Na ppx: home Xarelto code: full dispo: med tele Total Time Total Time Spent Total Time Spent (In Minutes): 32 Discharge Plan Discharge Items Patient Disposition: Home - Self-Care Reason For Visit: CARDIAC ASSESSMENT Discharge Diagnosis: a fib rvr Activity: Resume your previous activity Non-emergency contact: Primary Care Provider Call non-emergency contact if: you have any medication questions Follow-up/Referrals: Andria Mckeon MD [Primary Care Provider] - Edwardo Lewis DO [Physician] - 03/06/22 2:00 pm Diet: Heart Healthy and Low Sodium (2gm) Addtl Attending Provider Instructions: You have been hospitalized for an acute medical problem. During your stay at [facility], we have made an effort to correct the problem that brought you to the hospital while keeping you as comfortable as possible. Medications were used to bring your condition under control and your discharge instructions will include directions for any medications you should take after leaving the hospital. Please make sure you see your Primary Care Provider as part of your follow up plan. Recommend followup with PCP in 1-2 weeks. Followup with cardiology in one week. Will administer a loading dose of digoxin now Will add long-acting diltiazem 120 mg daily Will resume his digoxin at 0.25 mg daily Advised to refrain from significant physical activity. Pending Studies at Discharge: No Stand-Alone Forms: My [facility], Smoking Cessation Medications and DC Order Prescriptions: New diltiazem HCl [Taztia XT] 120 mg Capsule,Extended Release 24 Hr 120 mg PO QAM Qty: 30 RF: 0 digoxin 250 mcg (0.25 mg) tablet 250 mcg PO DAILY Qty: 30 RF: 0 Continued aspirin 81 mg tablet,chewable 81 mg PO DAILY Qty: 30 RF: 2 bumetanide 1 mg tablet 3 mg PO DAILY Qty: 270 RF: 3 metoprolol succinate 200 mg tablet extended release 24 hr 200 mg PO BID Qty: 180 RF: 3 metolazone 2.5 mg tablet 2.5 mg PO DAILY PRN (Reason: for weight gain, swelling, edema) Qty: 30 RF: 2 tamsulosin 0.4 mg capsule 0.4 mg PO DAILY Qty: 90 RF: 3 atorvastatin 10 mg tablet 10 mg PO DAILY Qty: 90 RF: 3 acetaminophen [Tylenol] 325 mg tablet 650 mg PO Q6H PRN (Reason: Pain) RF: 0 losartan 25 mg tablet 50 mg PO DAILY RF: 0 potassium chloride 10 mEq capsule, extended release 30 meq PO QAM RF: 0 potassium chloride 10 mEq capsule, extended release 40 meq PO QPM RF: 0 rivaroxaban 15 mg tablet 15 mg PO DAILYBD RF: 0 Discharge Orders: Discharge Order (Routine); Ordered 02/21/22 Ordered By: Perico Ruiz Admission Data Admit Date/Time: 04/21/22 23:56 Attending Provider: Perico Ruiz Admit Provider: Bimal Pathak Primary Care Provider: Andria Mckeon V. Other Providers: Latoya Woody ; Maldonado Gasca Other Interventions: Discharge Summary Assessment (RN) Last Done: 02/21/22 14:41 Coding Level of Care Code D/C DAY MANAGEMENT >30 MINS Diagnoses Defibrillator discharge Z45.02 Permanent atrial fibrillation I48.2 Congestive heart failure I50.9 Ischemic 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 I25.5 Chronic kidney disease, stage III (moderate) N18.3 Hypertension I10 Hypertension type: essential hypertension BPH (benign prostatic hyperplasia) N40.0 Witnessed apneic spells R06.81
[2022-02-21] MEDS ORDERED: RIVAROXABAN 15 MG TAB PO SCH (16:30)
== END 2022-02-21 15:10 | disposition home or self-care (01) ==
LOC: 2N 20:33 → ED 20:33 → SUATTDRO 23:56 → 2N 02-21 01:40

== ENCOUNTER 2025-02-09 05:12 | Inpatient (IN) ==
--- NOTE | 2025-02-09 06:42 | Emergency Department Note ---
Impression & Plan CHF (congestive heart failure), Wheezing, Dyspnea, Hypoxia Admit to the [facility] ED Provider Note NAME: SRINIVASAN GALEAS AGE: 74 SEX: Male INFORMANT: Patient ED PROVIDER(S): Michelle Sultana DO CHIEF COMPLAINT: Wheezing PLAN: Disposition: Admit to the [facility] MEDICAL DECISION MAKING: this is a 74-year-old male patient with a history of heart failure (EF 35%) who was recently diagnosed with asthma who presents to the emergency department with worsening shortness of breath with laying down. Patient was recently prescribed an albuterol inhaler along with an Advair discus after undergoing PFTs. Patient notes that his symptoms are not improving, in fact, they seem to be worsening to the point that he is unable to sleep. Laboratory studies tonight revealed no leukocytosis or anemia. D-dimer was 660, BNP was 547, troponin was normal. Digoxin level was normal. Initial peak flow was 240. Peak flow reading after an albuterol nebulizer treatment was only 250. Chest x-ray revealed significant cardiomegaly with moderate pulmonary vascular congestion. O2 saturation on presentation was 92%. Patient had received an albuterol nebulizer treatment after he was noted to be wheezing on physical exam. However, given his description of orthopnea, findings on chest x-ray, and lab value of his BNP, he was given 40 mg of IV Lasix. Patient began to have significant diuresis. I reevaluated the patient as he was coming back out of the restroom during a second trip to the restroom and he appeared significantly tachypneic and short of breath. I placed the pulse ox on his finger as he sat back down to the bed and his O2 saturation was 88%. He did eventually rebounded back into the 90s on room air. His presentation seems consistent with acute congestive heart failure. The patient has not been taking his Bumex regularly Care/management discussed with: [facility] care research manager Triage Nursing notes: reviewed and agree with them. Vital Signs: reviewed and unremarkable Additional History obtained from: Patient's patient at bedside Chronic Medical/Social Conditions affecting care: Congestive heart failure; implanted pacer Prior/ Outside/ External records reviewed: Outpatient cardiology notes; outpatient echocardiogram report Differential Diagnosis: Asthma exacerbation, CHF, PE, pneumonia Diagnostics, independently interpreted by me: ECG: A-fib at a rate of 72 with frequent ventricular paced complexes with no signs of ischemia Cardiac Monitoring: A-fib with ventricular paced complexes at a rate of 76 Imaging studies: portable chest x-ray: Significant cardiomegaly with pulmonary vascular congestion as per my independent interpretation HPI: 74 year old Male arrives for evaluation of shortness of breath and wheezing. Patient awoke from sleep around 2 AM with significant wheezing. He notes that his symptoms to be seem to be worse with laying down. His symptoms remind him of a similar presentation 5 years ago when he had heart surgery. He noticed that his symptoms have been happening over the past couple of weeks. He tried taking Bumex to see if it would help his symptoms but it has not. He has been evaluated by his PCP and his set up mechanic automatic line who ordered PFTs and he has been diagnosed with asthma and started on an albuterol inhaler and Advair discus. Patient has been using the inhaler with no relief to his symptoms. PAST MEDICAL HISTORY: See Below, PAST SURGICAL HISTORY: See Below, SOCIAL HISTORY: See Below, HOME MEDICATIONS: See list ALLERGIES: See list VITALS: See Below PHYSICAL EXAMINATION: HEENT: Head - normocephalic and atraumatic. Pupils are equal, round, and reactive to light. Extraocular eye muscles are intact, and sclera are anicteric. Nose - moist nasal mucosa without discharge. Mouth - moist buccal mucosa. Oropharynx is nonerythematous and there is no tonsillar exudate or edema noted. Neck: Supple; no JVD, nuchal rigidity, cervical lymphadenopathy, or auscultated bruits. Heart: Irregularly irregular rhythm. There is a normal S1 and S2 with no murmurs, clicks, or gallops appreciated. Lungs: Clear to auscultation bilaterally except for a very mild end expiratory wheeze at both bases. Abdomen: Soft, completely nontender, nondistended, with good bowel sounds. There are no palpable pulsatile masses or hepatosplenomegaly. There is no guarding, rigidity, or rebound noted. Extremities: No evidence of cyanosis, clubbing, or edema. There are easily palpable peripheral pulses. Skin: warm and dry with good turgor and no rashes. Emergency Department treatment: environmental monitoring specialist, DuoNeb treatment, IV Lasix Emergency department course: The patient was evaluated in room A-10. A complete history and physical was performed. An order was placed for continuous cardiac monitoring. The patient was in a atrial fibrillation at a rate of 76 with intermittent paced complexes. Portable chest x-ray was performed. A twelve- lead EKG was obtained. A DuoNeb treatment was administered. Peak flow was obtained attained before and after the treatment. Patient went for CT scan of the chest. Patient was given dose of IV Lasix. output was measured. I discussed the case with the [facility] and they will evaluate for further inpatient care. Past Med/Surg History Problem List (Updated 02/09/25 @ 18:23 by Michelle Sultana DO) Hypoxia (Acute) Dyspnea (Acute) Wheezing (Acute) CHF (congestive heart failure) (Acute) Tricuspid regurgitation Mitral regurgitation Acute on chronic HFrEF (heart failure with reduced ejection fraction) History of ventricular tachycardia Snoring TIA (transient ischemic attack) (09/2024) Wheezing HFrEF (heart failure with reduced ejection fraction) Arthritis of right sacroiliac joint Right low back pain Inappropriate shocks from ICD (implantable cardioverter-defibrillator) Hypertension (Chronic) Automatic implantable cardioverter-defibrillator in situ (Acute 2019) [employer] Vigilant dual-chamber device Ventricular tachycardia Recorded on outpatient Holter monitoring. 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 Chronic kidney disease, stage III (moderate) Esophageal reflux (Chronic) Numbness and tingling of right upper extremity (Chronic) hx Permanent atrial fibrillation (Chronic) internal defibrillator Secondary hyperparathyroidism (Chronic) Vitamin D deficiency disease (Chronic) Medical History Epigastric pain Neck pain Chills Atrial fibrillation Transient diplopia Chest tightness Cataract lt. 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 current use of anticoagulants with INR goal of 2.0-3.0 Lump of skin Dyspnea hx-none recently Sleeping difficulty Recurrent ventricular tachycardia (2019) Coronary artery embolism with myocardial infarction (2019) ~10/2019; following a aortic aneurysm repair at [facility] Volume overload hx-none recently Hyperlipidemia Hypertension Hypokalemia SOB (shortness of breath) on exertion hx-none recently Plantar fasciitis hx History of tinea corporis none recently History of tachycardia History of herpes labialis History of eustachian tube dysfunction "had some dizziness one time when he bent over, contacted set up mechanic automatic line who said it was an inner ear problem" Elevated creatine kinase level hx History of oral aphthous ulcers Vertigo none recently Surgical History Hx of cataract extraction lt. Hx of colonoscopy History of cardiac radiofrequency ablation 01/2020 and 05/2020; [facility] Family History Mother Hypertension Brother Hypertension Aortic aneurysm Father Lung cancer Sister Aortic aneurysm Other Myocardial infarction Denies family history of Ovarian cancer Prostate cancer Breast cancer Social History (Updated 02/09/25 @ 09:27 by Elver Bellamy MD) Smoking Status: Never smoker Second Hand Exposure: No; Do You Dip or Chew Tobacco: No; Tobacco Cessation Education Requested by Patient: No Hx Alcohol Use: No Hx Substance Use: No Preferred Language: [place] Zeal[place] Communication Ability: Effective Communication Ability Comment: drowsy from Benadryl but responds appropriately Visual Impairment: No Limitations Hearing Ability: Normal Ctrs Required: No Beliefs That Will Affect Care: None marital status: Current Living Situation: Spouse current occupational status: retired 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 How many Children do You have: 0 Other Information That Helps Us Care for You: No Feels Safe at Home: Yes Safety Concerns: Feels Safe At This Time Childhood Exposure to Second-Hand Smoke: Yes Diet: low salt and regular caffeine: Yes (occasional iced tea) Dental Care, Regularly: Yes Physical Activity Frequency: 3-4 Times per Week Seatbelt Use: always Sunscreen Use: Yes Do you think of yourself as: straight/heterosexual Gender Identity: Male Assistive Devices: Glasses Allergies Allergies Allergy/AdvReac Type Severity Reaction Status Date / Time Latex, Natural Rubber Allergy Intermediate Rash Verified 02/09/25 07:12 amoxicillin Allergy Mild Rash Verified 02/09/25 07:12 minocycline Allergy Unknown Unknown Verified 02/09/25 07:12 lisinopril AdvReac Unknown URINARY Verified 02/09/25 07:12 RETENTION Home Meds Home Medications Medication Instructions Recorded Confirmed acetaminophen 325 mg tablet 650 mg PO Q6H PRN Pain 12/08/19 02/09/25 (Tylenol) bumetanide 1 mg tablet 1 mg PO DAILY PRN Fluid Retention 10/20/24 02/09/25 clobetasol 0.05 % topical cream 1 applic topical BID 02/09/25 02/09/25 Previous Rx's Medication Instructions Recorded potassium chloride 10 mEq 30 meq (3 x 10 mEq) PO DAILY #270 04/12/24 capsule,extended release caps digoxin 250 mcg (0.25 mg) tablet 250 mcg PO QAM #90 tabs 06/01/24 diltiazem HCl 120 mg capsule,24 120 mg PO BID #180 caps 06/01/24 hr,extended release (Taztia XT) apixaban 5 mg tablet 5 mg PO BID #180 tabs 08/30/24 aspirin 81 mg chewable tablet 81 mg PO DAILY #30 tabs 10/20/24 atorvastatin 10 mg tablet 10 mg PO QPM #90 tabs 11/21/24 losartan 50 mg tablet 50 mg PO DAILY #90 tabs 11/21/24 metoprolol succinate 200 mg 200 mg PO BID #180 tabs 11/21/24 tablet,extended release 24 hr fluticasone 250 mcg-salmeterol 50 1 inh inhalation HS #60 ea 01/21/25 mcg/dose blistr powdr for inhalation albuterol sulfate 90 mcg/actuation 1 inh inhalation QID PRN shortness 02/03/25 aerosol inhaler of breath or wheezing #6.7 grams Results & Data (ED) Vital Signs Vital Signs - 24 hr 02/09/25 05:17 02/09/25 05:30 02/09/25 06:25 Temperature 36.5 C Temperature Source Oral Pulse Rate 73 71 Pulse Rate [Right Finger] 71 Respiratory Rate 20 Respiratory Effort / Characteristics Non-Labored Respiratory Depth Normal Blood Pressure 163/106 H Blood Pressure [Right Arm] 172/119 H Blood Pressure Mean 125 Blood Pressure Mean [Right Arm] 136 Blood Pressure Position [Right Arm] Pulse Oximetry 97 96 Oxygen Delivery Method Room Air Room Air Sepsis Recent Fever Within 48 Hours No Sepsis New/Unexplained Change in Mental Status No Sepsis Action Taken by Nursing No Action Required 02/09/25 07:08 02/09/25 08:55 Temperature Temperature Source Pulse Rate Pulse Rate [Right Finger] 70 79 Respiratory Rate 24 26 H Respiratory Effort / Characteristics Labored Respiratory Depth Blood Pressure Blood Pressure [Right Arm] 167/106 H 185/115 H Blood Pressure Mean Blood Pressure Mean [Right Arm] 126 138 Blood Pressure Position [Right Arm] Sitting Pulse Oximetry 96 95 Oxygen Delivery Method Room Air Sepsis Recent Fever Within 48 Hours Sepsis New/Unexplained Change in Mental Status Sepsis Action Taken by Nursing Laboratory Data 02/09/25 06:19 02/09/25 06:19 Lab Results 02/09/25 02/09/25 Range/Units 06:18 06:19 WBC 8.69 (4.8-10.8) K/ul RBC 5.25 (4.70-6.10) M/uL Hgb 14.8 (14.0-18.0) g/dl Hct 42.9 (42.0-52.0) % MCV 81.7 (80.0-100.0) fL MCH 28.2 (25.0-34.0) pg MCHC 34.5 (32.0-36.0) g/dL RDW Std Deviation 42.8 (36.4-46.3) fL RDW Coeff of Lorrie 14.6 H (11.5-14.5) % Plt Count 207 (130-400) K/uL MPV 11.5 (9.4-12.4) fL Immature Gran % (Auto) 0.3 % Neut % (Auto) 75.6 % Lymph % (Auto) 10.5 % Bailey % (Auto) 8.2 % Eos % (Auto) 4.1 % Baso % (Auto) 1.3 % Neut # (Auto) 6.57 H (1.40-6.50) K/uL Lymph # (Auto) 0.91 L (1.20-3.40) K/uL Bailey # (Auto) 0.71 H (0.11-0.59) K/uL Eos # (Auto) 0.36 (0.00-0.50) K/uL Baso # (Auto) 0.11 (0.00-0.20) K/uL Immature Gran # (Auto) 0.03 (0.01-0.20) K/uL D-Dimer 660 H* (0-500) ug/L FEU Sodium 142 (136-145) mmol/L Potassium 3.5 (3.5-5.1) mmol/L Chloride 107 (98-107) mmol/L Carbon Dioxide 28 (21-32) mmol/L Anion Gap 7 (3-11) BUN 19 (6-23) mg/dl Creatinine 1.36 (0.6-1.4) mg/dl Est Cr Clr Drug Dosing 60.1 ml/min eGFR 54.61 BUN/Creatinine Ratio 14.0 (10-20) Glucose 111 H (70-99(Fasting)) mg/dl Calcium 8.8 (8.6-10.3) mg/dl Magnesium 2.0 (1.7-2.4) mg/dl Total Bilirubin 1.6 H (0.2-1.0) mg/dl AST 18 (13-39) U/L ALT 17 (7-52) U/L Alkaline Phosphatase 104 (34-104) U/L Troponin I High Sens 19.6 (0-20) pg/ml B-Natriuretic Peptide 547 H (0-100) pg/ml Total Protein 6.7 (6.0-8.3) gm/dl Albumin 4.2 (3.4-5.0) gm/dl Globulin 2.5 (2.5-4.0) gm/dl Albumin/Globulin Ratio 1.7 (0.9-2) TSH 4.007 (0.300-4.500) uIu/ml Urine Color Yellow Urine Appearance Clear (Clear) Urine pH 5.5 (4.5-7.5) Ur Specific [place] 1.019 (1.000-1.030) Urine Protein 2+ H (Negative) Urine Glucose (UA) Negative (Negative) Urine Ketones Trace H (Negative) Urine Blood Trace H (Negative) Urine Nitrite Negative (Negative) Urine Bilirubin Negative (Negative) Urine Urobilinogen Negative (Negative) Ur Leukocyte Esterase Negative (Negative) Urine WBC (Auto) 0-5 (0-5) /hpf Urine RBC (Auto) 0-2 (0-2) /hpf U Hyaline Cast (Auto) 0-2 (0-2) /lpf U Epithel Cells (Auto) 0-2 (0-2) /hpf Urine Bacteria (Auto) None Seen (None Seen) Digoxin 1.2 (0.8-2.0) ng/ml Administered Medications Apixaban (Apixaban 5 Mg Tablet) 5 mg PO BID [facility] Stop: 03/11/25 11:23 Last Admin: 02/09/25 12:38 Dose: 5 mg Documented By: SAMSON Aspirin (Aspirin 81 Mg Chew) 81 mg PO DAILY [facility] Stop: 03/11/25 11:23 Last Admin: 02/09/25 12:38 Dose: 81 mg Documented By: SAMSON Digoxin (Digoxin 0.25 Mg Tab) [facility] Stop: 03/11/25 11:23 Last Admin: 02/09/25 12:38 Dose: 0.25 mg Documented By: SAMSON Metoprolol Succinate (Metoprolol Succ 50mg Ext Rel Tab) 200 mg PO BID [facility] Stop: 03/11/25 11:23 Last Admin: 02/09/25 12:39 Dose: 200 mg Documented By: SAMSON Potassium Chloride (Potassium Chloride 10 Meq Tabcr) 20 meq PO BID [facility] Stop: 03/11/25 11:23 Last Admin: 02/09/25 12:41 Dose: 20 meq Documented By: SAMSON Spironolactone (Spironolactone 25 Mg Tab) [facility] Stop: 03/11/25 15:14 Last Admin: 02/09/25 16:18 Dose: 25 mg Documented By: SAMSON Discontinued Medications Albuterol (Albut/Ipratrop 3mg/0.5mg Neb 3 Ml Vial) 3 ml NEB NOW STA; Protocol Stop: 02/09/25 06:56 Last Admin: 02/09/25 07:00 Dose: 3 ml Documented By: MAX Furosemide (Furosemide 40 Mg/4 Ml Vial) 40 mg IV ONE ONE Stop: 02/09/25 07:31 Last Admin: 02/09/25 07:35 Dose: 40 mg Documented By: MAX Losartan Potassium (Losartan Potassium 50 Mg Tab) 50 mg PO DAILY [facility] Stop: 03/11/25 11:23 Last Admin: 02/09/25 12:39 Dose: 50 mg Documented By: SAMSON Imaging Data Radiologist's Impression: Chest X-Ray 02/09/25 05:56 EXAM: XR chest 1V portable CLINICAL HISTORY: Dyspnea. TECHNIQUE: An X-ray image of the chest is obtained in AP projection. COMPARISON: 10/20/2024 X-ray chest. FINDINGS: Pulmonary Parenchyma: Mild bilateral parahilar vascular congestion. No evidence of consolidation, collapse, or focal opacities. No pulmonary nodules are identified. No evidence of pleural effusion or pleural thickening. Heart and Mediastinum: Moderate cardiomegaly. No mediastinal widening or masses. No hilar or mediastinal lymphadenopathy. Bony Thorax: The bony thorax appears intact without fractures or deformities. Soft Tissues: Soft tissues overlying the chest wall are unremarkable. Intact midline sternotomy sutures. Cardiac pacemaker in place. IMPRESSION: 1. Mild bilateral parahilar vascular congestion. 2. Moderate cardiomegaly. 3. Cardiac pacemaker in place. 4. Findings are stable. Electronically signed by Sanford Baron 02-09-2025 07:02 AM Discharge Plan Visit Data Chief Complaint: Asthma Stated Complaint: WHEEZING,HARD TO BREATHE ED Provider: Michelle Sultana Discharge Problem: CHF (congestive heart failure), Wheezing, Dyspnea, Hypoxia Patient Disposition: Admitted As Inpatient Discharge Instructions Interventions: ED Discharge Assessment Last Done: 02/09/25 10:49
[2025-02-09 06:52] LABS: Basophils # (auto) 0.11 K/uL (0.00-0.20); Basophils % (auto) 1.3 %; Eosinophils # (auto) 0.36 K/uL (0.00-0.50); Eosinophils % (auto) 4.1 %; Hematocrit (blood only) 42.9 % (42.0-52.0); Hemoglobin 14.8 g/dl (14.0-18.0); Immature Granulocytes # (auto) 0.03 K/uL (0.01-0.20); Immature Granulocytes % (auto) 0.3 %; Lymphocytes # (auto) 0.91 K/uL (1.20-3.40); Lymphocytes % (auto) 10.5 %; Mean Corpuscular Hemoglobin 28.2 pg (25.0-34.0); Mean Corpuscular Hgb Conc 34.5 g/dL (32.0-36.0); Mean Corpuscular Volume 81.7 fL (80.0-100.0); Mean Platelet Volume 11.5 fL (9.4-12.4); Monocytes # (auto) 0.71 K/uL (0.11-0.59); Monocytes % (auto) 8.2 %; Neutrophils # (auto) 6.57 K/uL (1.40-6.50); Neutrophils % (auto) 75.6 %; Platelet Count 207 K/uL (130-400); RDW Coefficient of Variation 14.6 % (11.5-14.5); RDW Standard Deviation 42.8 fL (36.4-46.3); Red Blood Count 5.25 M/uL (4.70-6.10); White Blood Count 8.69 K/ul (4.8-10.8)
[2025-02-09] MEDS: ALBUT/IPRATROP 3MG/0.5MG NEB 3 ML VIAL NEB STA (07:00)
--- NOTE | 2025-02-09 07:02 | XRay Report ---
EXAM: XR chest 1V portable CLINICAL HISTORY: Dyspnea. TECHNIQUE: An X-ray image of the chest is obtained in AP projection. COMPARISON: 10/20/2024 X-ray chest. FINDINGS: Pulmonary Parenchyma: Mild bilateral parahilar vascular congestion. No evidence of consolidation, collapse, or focal opacities. No pulmonary nodules are identified. No evidence of pleural effusion or pleural thickening. Heart and Mediastinum: Moderate cardiomegaly. No mediastinal widening or masses. No hilar or mediastinal lymphadenopathy. Bony Thorax: The bony thorax appears intact without fractures or deformities. Soft Tissues: Soft tissues overlying the chest wall are unremarkable. Intact midline sternotomy sutures. Cardiac pacemaker in place. IMPRESSION: 1. Mild bilateral parahilar vascular congestion. 2. Moderate cardiomegaly. 3. Cardiac pacemaker in place. 4. Findings are stable. Electronically signed by Sanford Baron 02-09-2025 07:02 AM
[2025-02-09 07:29] LABS: Albumin Globulin Ratio 1.7 (0.9-2); Albumin Level 4.2 gm/dl (3.4-5.0); Bilirubin,Total 1.6 mg/dl (0.2-1.0); Calcium 8.8 mg/dl (8.6-10.3); Creatinine Clr Calc Pharmacy 60.1 ml/min; Globulin 2.5 gm/dl (2.5-4.0); Potassium 3.5 mmol/L (3.5-5.1); Total Protein 6.7 gm/dl (6.0-8.3)
[2025-02-09 07:35] LABS: Troponin I High Sensitivity 19.6 pg/ml (0-20)
[2025-02-09] MEDS: FUROSEMIDE 40 MG/4 ML VIAL IV ONE (07:35)
[2025-02-09 07:45] LABS: Appearance Urine Clear (Clear); Bacteria Urine Automated None Seen (None Seen); Bilirubin Urine Negative (Negative); Blood Urine Trace (Negative); Cast Urine Automated 0-2 /lpf (0-2); Color Urine Yellow; Epithelial Cell Urine Auto 0-2 /hpf (0-2); Glucose Urine UA Negative (Negative); Ketones Urine Trace (Negative); Leukocyte Esterase Urine Negative (Negative); Nitrite Urine Negative (Negative); Protein Urine 2+ (Negative); RBC Urine Automated 0-2 /hpf (0-2); Specific Gravity Urine 1.019 (1.000-1.030); Urobilinogen Urine Negative (Negative); WBC Urine Automated 0-5 /hpf (0-5); pH Urine 5.5 (4.5-7.5)
[2025-02-09 07:49] LABS: D Dimer 660 ug/L FEU (0-500)
--- NOTE | 2025-02-09 09:10 | History & Physical Report ---
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, with 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 Patient has evidence of pulm edema/decompensated CHF upon presentation and has responded nicely to lasix 40mg IV x 1 in the ER with symptomatic improvement. #acute/chronic systolic CHF - * typically is NOT on standing diuretics at home * has had very good diuresis thus far with lasix IV given in ER * will cont daily lasix IV with goal of net negative 1 to 2 liters/day * daily BMP * cardiology consult requested; case d/w Dr Carreno, [facility] * echo to check valve function and EF * pacemaker interrogation requested * cont meto succ 200mg BID * stop diltiazem - relatively contraindicated given his systolic CHF * needs better BP control - cardiology to likely add GDMT including Entresto & aldactone which should improve his BPs * losartan will be stopped if Entresto is added #dyspnea/orthopnea/PND - * although recent PFTs indeed showed moderate obstruction he had little i mprovement in symptoms with addition of advair * thus, current symptoms are likely CHF-related / pulmonary edema related * see above #ICD/pacemaker with prior h/o VT - * place on tele * device interrogation requested #permanent a.fib - * cont Eliquis BID * cont meto succ BID * cont dig; level noted to be acceptable * stop diltiazem #h/o aortic dissection s/p aortic root replacement - * root remains dilated in the face of prior surgery * [place] [facility]ology/CT surgery have told him, however, that the root has been stable for several years * echo ordered; we can get a good look at the aortic root with such * cont BP control with meto succ & other meds * he has no symptoms to suggest recurrent dissection #CKD stage 3a - * daily BMP in the face of diuresis * follows with [facility] #Apneas - * noted by his during sleep but no snoring * this may be central sleep apnea * sleep study later this spring #valvular heart disease - * could be contributing to decompensated CHF * await repeat echo #HTN - * losartan to be stopped; Entresto to be added * diltiazem stopped; contraindicated with his systolic CHF * aldactone to be added * BPs should improve with lasix diuresis * cont meto succ BID #h/o TIA - * cont asa * cont Eliquis BID #DVT proph - * Eliquis pt's updated throughout the admissions process appreciate cardiology assistance History of Present Illness Chief Complaint: "wheezing," orthopnea, PND, dyspnea on exertion Primary Care Provider: Andria Mckeon MD 74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, 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, with 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 Has been evaluated as an outpatient by pulmonary/nephrology/cardiology in the last 6 weeks and it was felt that his symptoms were not-CHF related as he was not examining in CHF and his weights at home had been stable. Patient had tried bumex about 2 months ago at home but he did not notice any improvement in his nocturnal symptoms. He ultimately was referred for PFTs which showed moderate obstruction & mild restrictive lung disease. A trial of Advair did not alter or improve his pulmonary symptoms. He mentions he is scheduled for a sleep study later in the spring. He denies any peripheral edema or abdominal bloating. Denies weight gains. Over the last few nights he had to prop himself with pillows to breath, and during the same time frame has had worsening dyspnea on exertion with walking up stairs, etc. Denies any cough or URI symptoms or infectious symptoms. Appetite has been excellent. No recent heavy salted foods or excessive fluid intake. He is compliant with all medicines. Does not check BPs at home. Since arriving to the ER and receiving IV lasix 40mg x 1 he has voided at least 5 times with improvement in his dyspnea on exertion and his orthopnea. He has not required any supplemental O2 since arrival to the ER. Allergies Allergy/AdvReac Type Severity Reaction Status Date / Time Latex, Natural Rubber Allergy Intermediate Rash Verified 02/09/25 07:12 amoxicillin Allergy Mild Rash Verified 02/09/25 07:12 minocycline Allergy Unknown Unknown Verified 02/09/25 07:12 lisinopril AdvReac Unknown URINARY Verified 02/09/25 07:12 RETENTION Home Medications Medication Instructions Recorded Confirmed Type acetaminophen 325 mg tablet 650 mg PO Q6H PRN Pain 12/08/19 02/09/25 History (Tylenol) potassium chloride 10 mEq 30 meq (3 x 10 mEq) PO DAILY #270 04/12/24 02/09/25 Rx capsule,extended release caps digoxin 250 mcg (0.25 mg) tablet 250 mcg PO QAM #90 tabs 06/01/24 02/09/25 Rx diltiazem HCl 120 mg capsule,24 120 mg PO BID #180 caps 06/01/24 02/09/25 Rx hr,extended release (Taztia XT) apixaban 5 mg tablet 5 mg PO BID #180 tabs 08/30/24 02/09/25 Rx aspirin 81 mg chewable tablet 81 mg PO DAILY #30 tabs 10/20/24 02/09/25 Rx bumetanide 1 mg tablet 1 mg PO DAILY PRN Fluid Retention 10/20/24 02/09/25 History atorvastatin 10 mg tablet 10 mg PO QPM #90 tabs 11/21/24 02/09/25 Rx losartan 50 mg tablet 50 mg PO DAILY #90 tabs 11/21/24 02/09/25 Rx metoprolol succinate 200 mg 200 mg PO BID #180 tabs 11/21/24 02/09/25 Rx tablet,extended release 24 hr fluticasone 250 mcg-salmeterol 50 1 inh inhalation HS #60 ea 01/21/25 02/09/25 Rx mcg/dose blistr powdr for inhalation albuterol sulfate 90 mcg/actuation 1 inh inhalation QID PRN shortness 02/03/25 02/09/25 Rx aerosol inhaler of breath or wheezing #6.7 grams clobetasol 0.05 % topical cream 1 applic topical BID 02/09/25 02/09/25 History Past Med/Surg History Problem List (Updated 02/09/25 @ 18:23 by Michelle Sultana DO) Hypoxia (Acute) Dyspnea (Acute) Wheezing (Acute) CHF (congestive heart failure) (Acute) Tricuspid regurgitation Mitral regurgitation Acute on chronic HFrEF (heart failure with reduced ejection fraction) History of ventricular tachycardia Snoring TIA (transient ischemic attack) (09/2024) Wheezing HFrEF (heart failure with reduced ejection fraction) Arthritis of right sacroiliac joint Right low back pain Inappropriate shocks from ICD (implantable cardioverter-defibrillator) Hypertension (Chronic) Automatic implantable cardioverter-defibrillator in situ (Acute 2019) [employer] Vigilant dual-chamber device Ventricular tachycardia Recorded on outpatient Holter monitoring. 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 Chronic kidney disease, stage III (moderate) Esophageal reflux (Chronic) Numbness and tingling of right upper extremity (Chronic) hx Permanent atrial fibrillation (Chronic) internal defibrillator Secondary hyperparathyroidism (Chronic) Vitamin D deficiency disease (Chronic) Medical History Epigastric pain Neck pain Chills Atrial fibrillation Transient diplopia Chest tightness Cataract lt. eye History of COVID-19 10/08/22, not hosp; sore throat, given antiviral lagevrio for 5 days>resolved Congestive heart failure Elevated troponin hx AICD discharge hx Defibrillator discharge hx custodial current use of anticoagulants with INR goal of 2.0-3.0 Lump of skin Dyspnea hx-none recently Sleeping difficulty Recurrent ventricular tachycardia (2019) Coronary artery embolism with myocardial infarction (2019) ~10/2019; following a aortic aneurysm repair at [facility] Volume overload hx-none recently Hyperlipidemia Hypertension Hypokalemia SOB (shortness of breath) on exertion hx-none recently Plantar fasciitis hx History of tinea corporis none recently History of tachycardia History of herpes labialis History of eustachian tube dysfunction "had some dizziness one time when he bent over, contacted adding machine mechanic who said it was an inner ear problem" Elevated creatine kinase level hx History of oral aphthous ulcers Vertigo none recently Surgical History Hx of cataract extraction lt. Hx of colonoscopy History of cardiac radiofrequency ablation 01/2020 and 05/2020; [facility] Family History Mother Hypertension Brother Hypertension Aortic aneurysm Father Lung cancer Sister Aortic aneurysm Other Myocardial infarction Denies family history of Ovarian cancer Prostate cancer Breast cancer Social History (Updated 02/09/25 @ 09:27 by Elver Bellamy MD) Smoking Status: Never smoker Second Hand Exposure: No; Do You Dip or Chew Tobacco: No; Tobacco Cessation Education Requested by Patient: No Hx Alcohol Use: No Hx Substance Use: No Preferred Language: Emir[place] Communication Ability: Effective Communication Ability Comment: drowsy from Benadryl but responds appropriately Visual Impairment: No Limitations Hearing Ability: Normal Logistics Coordinator Required: No Beliefs That Will Affect Care: None marital status: Current Living Situation: Spouse current occupational status: retired 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 How many Children do You have: 0 Other Information That Helps Us Care for You: No Feels Safe at Home: Yes Safety Concerns: Feels Safe At This Time Childhood Exposure to Second-Hand Smoke: Yes Diet: low salt and regular caffeine: Yes (occasional iced tea) Dental Care, Regularly: Yes Physical Activity Frequency: 3-4 Times per Week Seatbelt Use: always Sunscreen Use: Yes Do you think of yourself as: straight/heterosexual Gender Identity: Male Assistive Devices: Glasses Review of Systems Review of Systems: gen - no weight gain; no fevers/chills; normal appetite eyes - no changes in vision recently HENT - no cold/URI symptoms neck - no pain CV - no chest pain; +orthopnea, PND, "night time wheezing"; no peripheral edema pulm - no dyspnea at rest but +MARIN; some cough; wheezing; apneas at night noted by GI - no vomiting or diarrhea or pain - no dysuria musculo - denies specific joint pains skin - eczema on legs endo - no diabetes neuro - no headaches Physical Exam Physical Exam: gen - NAD, resting comfortably in bed, pleasant eyes - PERRL HENT - mouth with MMM, no lesions neck - mild JVD present with +hepatojugular reflex heart - irregular, s1 s2, 2-3/6 holosystolic murmur LLSB with radiation to L axillae lungs - minimal end-exp wheezes with minimal b/l basilar rales, no respiratory distress abd - soft NT ND BS+; no HSM ext - no peripheral edema, pulses b/l feet 2+ skin - mild eczematic rashes on shins psych - a/o x 3 neuro - strength 5/5 x 4 exts vascular - radial pulses 2+ b/l Results & Data Results & Data Vital Signs (Past 12 Hours) Vital Signs Temp Pulse Pulse Resp BP BP Pulse Ox 02/09/25 07:08 70 24 167/106 H 96 02/09/25 06:25 71 20 172/119 H 96 02/09/25 05:30 71 02/09/25 05:17 36.5 C 73 163/106 H 97 O2 Del Method 02/09/25 07:08 02/09/25 06:25 Room Air 02/09/25 05:30 02/09/25 05:17 Room Air Laboratory Results Laboratory Results - last 24 hr 02/09/25 02/09/25 06:18 06:19 WBC 8.69 RBC 5.25 Hgb 14.8 Hct 42.9 MCV 81.7 MCH 28.2 MCHC 34.5 RDW Std Deviation 42.8 RDW Coeff of Lorrie 14.6 H Plt Count 207 MPV 11.5 Immature Gran % (Auto) 0.3 Neut % (Auto) 75.6 Lymph % (Auto) 10.5 [place] % (Auto) 8.2 Eos % (Auto) 4.1 Baso % (Auto) 1.3 Neut # (Auto) 6.57 H Lymph # (Auto) 0.91 L [place] # (Auto) 0.71 H Eos # (Auto) 0.36 Baso # (Auto) 0.11 Immature Gran # (Auto) 0.03 D-Dimer 660 H* Sodium 142 Potassium 3.5 Chloride 107 Carbon Dioxide 28 Anion Gap 7 BUN 19 Creatinine 1.36 Est Cr Clr Drug Dosing 60.1 eGFR 54.61 BUN/Creatinine Ratio 14.0 Glucose 111 H Calcium 8.8 Total Bilirubin 1.6 H AST 18 ALT 17 Alkaline Phosphatase 104 Troponin I High Sens 19.6 B-Natriuretic Peptide 547 H Total Protein 6.7 Albumin 4.2 Globulin 2.5 Albumin/Globulin Ratio 1.7 Urine Color Yellow Urine Appearance Clear Urine pH 5.5 Ur Specific [place] 1.019 Urine Protein 2+ H Urine Glucose (UA) Negative Urine Ketones Trace H Urine Blood Trace H Urine Nitrite Negative Urine Bilirubin Negative Urine Urobilinogen Negative Ur Leukocyte Esterase Negative Urine WBC (Auto) 0-5 Urine RBC (Auto) 0-2 U Hyaline Cast (Auto) 0-2 U Epithel Cells (Auto) 0-2 Urine Bacteria (Auto) None Seen Digoxin 1.2 Diagnostic Findings Chest X-Ray 02/09/25 05:56 EXAM: XR chest 1V portable CLINICAL HISTORY: Dyspnea. TECHNIQUE: An X-ray image of the chest is obtained in AP projection. COMPARISON: 10/20/2024 X-ray chest. FINDINGS: Pulmonary Parenchyma: Mild bilateral parahilar vascular congestion. No evidence of consolidation, collapse, or focal opacities. No pulmonary nodules are identified. No evidence of pleural effusion or pleural thickening. Heart and Mediastinum: Moderate cardiomegaly. No mediastinal widening or masses. No hilar or mediastinal lymphadenopathy. Bony Thorax: The bony thorax appears intact without fractures or deformities. Soft Tissues: Soft tissues overlying the chest wall are unremarkable. Intact midline sternotomy sutures. Cardiac pacemaker in place. IMPRESSION: 1. Mild bilateral parahilar vascular congestion. 2. Moderate cardiomegaly. 3. Cardiac pacemaker in place. 4. Findings are stable. Electronically signed by Sanford Baron 02-09-2025 07:02 AM EKG - my reading - underlying a.fib with intermittent pacing, inferior ST changes Code Status & VTE Plan Code Status full code PG Care Time/CCT Total # of Minutes Spent Total Time Spent with Patient: Total time spent is greater than 50% in coordination of care (as documented) at patient's floor/unit and/or counseling patient: Coding Level of Care Code 09815 INT INP/OBS CARE 3/75MIN Diagnoses Acute on chronic systolic heart failure I50.23 HFrEF (heart failure with reduced ejection fraction) I50.20 Essential hypertension I10 Hypertension type: essential hypertension Automatic implantable cardioverter-defibrillator in situ Z95.810 History of ventricular tachycardia Z86.79 Moderate to severe mitral regurgitation I34.0 Severe tricuspid regurgitation I07.1 BPH (benign prostatic hyperplasia) N40.0 Ischemic 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 I25.5 S/P ascending aortic aneurysm repair Z98.890; Z86.79 Chronic kidney disease, stage III (moderate) N18.3 Esophageal reflux K21.9 Permanent atrial fibrillation I48.2 (3) Hypertension Hypertension type: essential hypertension Qualified Code(s): I10 - Essential (primary) hypertension
--- NOTE | 2025-02-09 09:46 | Cardiology Consultation ---
Date of Consultation February 09, 2025 Assessment & Plan (1) Acute on chronic HFrEF (heart failure with reduced ejection fraction): (2) S/P ascending aortic aneurysm repair: (3) Ischemic 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: (4) Permanent atrial fibrillation: (5) Mitral regurgitation: (6) Tricuspid regurgitation: (7) Ventricular tachycardia: (8) Automatic implantable cardioverter-defibrillator in situ: (9) Hypertension: Plan ASSESSMENT/PLAN: 1. Acute on chronic heart failure with reduced EF: NYHA class III/IV. Hypervolemic but quickly improving following IV Lasix in the ER. Continue IV Lasix with a net negative fluid balance goal of 1 to 2 L negative today. Replace losartan with Entresto. Continue metoprolol succinate. Agree with discontinuation of diltiazem. Start spironolactone 25 mg daily. In the near future, recommend SGLT2 inhibitor. Low-sodium diet, less than 2000 mg daily. Strict I's and O's. Daily weights. Heart failure program. 2. Ischemic 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: Repeat echo. ICD in place. Medical therapy as above. 3. Atrial fibrillation: Permanent per records. Continue beta-jefferson. On digoxin chronically, which can be continued for now. Monitor levels and try to maintain level less than 1. Continue anticoagulation for stroke risk reduction. 4. Mitral and tricuspid regurgitation: Repeat echo. Described as significant in the past on [facility] echo. 5. CAD: Occluded distal LAD per records, felt to be embolic following aortic surgery. Risk factor modification. 6. Hypertension: Blood pressure has been elevated consistently here. Blood pressure should improve with adjustment of heart failure medications as above. 7. ICD: Managed by electrophysiology. 8. Ventricular tachycardia s/p ablation x 2 (2019): Underwent ablation per records. ICD in place. Not requiring antiarrhythmic therapy. 9. Disposition: Cardiology will continue to follow. Heart failure program on discharge. Follow-up with primary gold reclaimer, Dr. Gonzalez. Patient care communicated with primary hospitalist, Dr. Bellamy. Highly complex medical issues. Thank you for allowing me to participate in the care of your patient. Please call for any other questions or concerns. Sincerely, Cameron Carreno M.D. History of Present Illness History of Present Illness Mr. Vance is a very pleasant 74-year-old gentleman with history significant for type a aortic dissection s/p aortic root replacement (2019) complicated by embolism to LAD with subsequent ischemic 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 and LAD wall motion abnormality, recurrent ventricular tachycardia s/p ICD and VT ablation x 2 (2019), significant mitral and tricuspid regurgitation, heart failure with reduced EF, atrial fibrillation, CKD, TIAs, COPD, and hypertension. His primary gold reclaimer is Dr. Gonzalez. His lunchroom food service supervisor is Dr. Cecy ahmadi. He has participated in the heart failure program in the past (last phone visit 03/05/2020). He has had the following studies/procedures: 1. Aortic dissection repair 2018 [facility]: Nikolai aortic valve was resuspended. Proximal aorta replaced with 28 mm graft. Postoperatively, felt to have an embolic LAD MN and developed recurrent VT. 2. ICD 10/27/2019 C: [employer] dual-chamber. 3. Cardiac cath 10/24/2019 C: Distal LAD 100%, felt to be potentially embolic. RCA provided minor collaterals. 4. Echo 10/28/2019 [facility]: EF 45% with apical wall motion abnormality. 5. Echo 12/21/2020 C: Dilated LV with moderately reduced systolic function. EF 35%. Anteroseptal akinesis with distal anterior wall and apical aneurysm. Mild LVH. Dilated RV with reduced systolic function. Severe biatrial dilation. Mild AI. Severe central to posteriorly directed MR, likely due to restricted posterior leaflet and annular dilation. Moderate to severe TR. He was admitted to [facility] on 02/09/2025 due to shortness of breath. He has been experiencing dyspnea on exertion, especially with inclines but also during his usual walk over the past few weeks. He denies chest pain, edema, syncope, near syncope, or bleeding such as melena, hematochezia, or hematuria. He also has been experiencing orthopnea and nocturnal cough when laying supine as well as wheezing. It reminded him of prior heart failure symptoms. He took Bumex and improved briefly after 1 dose but then has since had mixed results when periodically taking Bumex 1 mg. He believes that his last Bumex was 6 weeks ago. His weight has been stable at home. He avoids significant amounts of sodium consumption. He also has undergone PFTs and was prescribed an inhaler, which helped for the first few days but then he has not noted any significant relief with his breathing, specifically at night. He recalls being on Bumex after his surgery in 2018 and used it consistently for 3 years based on weight parameters. In January 2023, he discontinued Bumex in anticipation of a trip to [place] and never resumed it as he was doing well with stable weight. He denies fevers, chills, nausea, vomiting. Review of systems: As above. Family history: Mother had hypertension. Social history: Denies smoking. Occasional alcohol. No drugs. Lives at home with his . No children. 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 His was present at the bedside. Allergies Allergy/AdvReac Type Severity Reaction Status Date / Time Latex, Natural Rubber Allergy Intermediate Rash Verified 02/09/25 07:12 amoxicillin Allergy Mild Rash Verified 02/09/25 07:12 minocycline Allergy Unknown Unknown Verified 02/09/25 07:12 lisinopril AdvReac Unknown URINARY Verified 02/09/25 07:12 RETENTION Home Medications Medication Instructions Recorded Confirmed Type acetaminophen 325 mg tablet 650 mg PO Q6H PRN Pain 12/08/19 02/09/25 History (Tylenol) potassium chloride 10 mEq 30 meq (3 x 10 mEq) PO DAILY #270 04/12/24 02/09/25 Rx capsule,extended release caps digoxin 250 mcg (0.25 mg) tablet 250 mcg PO QAM #90 tabs 06/01/24 02/09/25 Rx diltiazem HCl 120 mg capsule,24 120 mg PO BID #180 caps 06/01/24 02/09/25 Rx hr,extended release (Taztia XT) apixaban 5 mg tablet 5 mg PO BID #180 tabs 08/30/24 02/09/25 Rx aspirin 81 mg chewable tablet 81 mg PO DAILY #30 tabs 10/20/24 02/09/25 Rx bumetanide 1 mg tablet 1 mg PO DAILY PRN Fluid Retention 10/20/24 02/09/25 History atorvastatin 10 mg tablet 10 mg PO QPM #90 tabs 11/21/24 02/09/25 Rx losartan 50 mg tablet 50 mg PO DAILY #90 tabs 11/21/24 02/09/25 Rx metoprolol succinate 200 mg 200 mg PO BID #180 tabs 11/21/24 02/09/25 Rx tablet,extended release 24 hr fluticasone 250 mcg-salmeterol 50 1 inh inhalation HS #60 ea 01/21/25 02/09/25 Rx mcg/dose blistr powdr for inhalation albuterol sulfate 90 mcg/actuation 1 inh inhalation QID PRN shortness 02/03/25 02/09/25 Rx aerosol inhaler of breath or wheezing #6.7 grams clobetasol 0.05 % topical cream 1 applic topical BID 02/09/25 02/09/25 History Problem List (Updated 02/09/25 @ 14:50 by Doe Carreno MD) Tricuspid regurgitation Mitral regurgitation Acute on chronic HFrEF (heart failure with reduced ejection fraction) History of ventricular tachycardia Snoring TIA (transient ischemic attack) (09/2024) Wheezing HFrEF (heart failure with reduced ejection fraction) Arthritis of right sacroiliac joint Right low back pain Inappropriate shocks from ICD (implantable cardioverter-defibrillator) Hypertension (Chronic) Automatic implantable cardioverter-defibrillator in situ (Acute 2019) [employer] dual-chamber device Ventricular tachycardia Recorded on outpatient Holter monitoring. VT ablation involving the left ventricular apical aneurysm [facility] 01/23/2020 Health care maintenance Moderate to severe mitral regurgitation Severe tricuspid regurgitation Cardiac dysrhythmia (Acute) Anticoagulant long-term use Witnessed apneic spells pt unsure about this-"never had any breathing issues" BPH (benign prostatic hyperplasia) Ischemic 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 (2019) EF=45% October 2019 S/P ascending aortic aneurysm repair (2019) 10/2019-"aorta above heart ruptured, flown to [facility] for surgery"-hospitalized for 3 1/2 weeks. Chronic kidney disease, stage III (moderate) Esophageal reflux (Chronic) Numbness and tingling of right upper extremity (Chronic) hx Permanent atrial fibrillation (Chronic) internal defibrillator Secondary hyperparathyroidism (Chronic) Vitamin D deficiency disease (Chronic) Patient History Medical History Epigastric pain Neck pain Chills Atrial fibrillation Transient diplopia Chest tightness Cataract lt. 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 with INR goal of 2.0-3.0 Lump of skin Dyspnea hx-none recently Sleeping difficulty Recurrent ventricular tachycardia (2019) Coronary artery embolism with myocardial infarction (2019) ~10/2019; following a aortic aneurysm repair at [facility] Volume overload hx-none recently Hyperlipidemia Hypertension Hypokalemia SOB (shortness of breath) on exertion hx-none recently Plantar fasciitis hx History of tinea corporis none recently History of tachycardia History of herpes labialis History of eustachian tube dysfunction "had some dizziness one time when he bent over, contacted gold reclaimer who said it was an inner ear problem" Elevated creatine kinase level hx History of oral aphthous ulcers Vertigo none recently Surgical History Hx of cataract extraction lt. Hx of colonoscopy History of cardiac radiofrequency ablation 01/2020 and 05/2020; [facility] Family History Mother Hypertension Brother Hypertension Aortic aneurysm Father Lung cancer Sister Aortic aneurysm Other Myocardial infarction Denies family history of Ovarian cancer Prostate cancer Breast cancer Social History (Updated 02/09/25 @ 09:27 by Elver Bellamy MD) Smoking Status: Never smoker Second Hand Exposure: No; Do You Dip or Chew Tobacco: No; Tobacco Cessation Education Requested by Patient: No Hx Alcohol Use: No Hx Substance Use: No Preferred Language: Swedish Communication Ability: Effective Communication Ability Comment: drowsy from Benadryl but responds appropriately Visual Impairment: No Limitations Hearing Ability: Normal Aircraft General Repair Mechanic Required: No Beliefs That Will Affect Care: None marital status: Current Living Situation: Spouse current occupational status: retired 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 Alert and oriented. HEENT: Anicteric sclera. Neck: Mild JVD. Hepatojugular reflux noted. No bruits. Normal carotid upstrokes bilaterally. Cardiac: Irregularly irregular. Normal S1-S2. 2/6 holosystolic murmur best heard at the apex and radiates to the left axilla. Pulmonary: Clear to auscultation bilaterally without wheezes, rales, or rhonchi. Abdomen: Soft, nontender, nondistended, with normoactive bowel sounds. No bruits noted. Extremities: 2+ radial pulses bilaterally. 2+ posterior tibialis pulses bilaterally. Trace bilateral lower extremity edema. No cyanosis. Results & Data Vital Signs (Past 12 Hours) Vital Signs Temp Pulse Pulse Resp BP BP Pulse Ox 02/09/25 08:55 79 26 H 185/115 H 95 02/09/25 07:08 70 24 167/106 H 96 02/09/25 06:25 71 20 172/119 H 96 02/09/25 05:30 71 02/09/25 05:17 36.5 C 73 163/106 H 97 O2 Del Method 02/09/25 08:55 Room Air 02/09/25 07:08 02/09/25 06:25 Room Air 02/09/25 05:30 02/09/25 05:17 Room Air Intake & Output 02/07/25 02/08/25 02/09/25 02/10/25 06:59 06:59 06:59 06:59 Output Total 1200 / 1200 Balance -1200 / -1200 Weight 227 lb 1.218 oz Laboratory Results Laboratory Results - last 24 hr 02/09/25 02/09/25 06:18 06:19 WBC 8.69 RBC 5.25 Hgb 14.8 Hct 42.9 MCV 81.7 MCH 28.2 MCHC 34.5 RDW Std Deviation 42.8 RDW Coeff of Lorire 14.6 H Plt Count 207 MPV 11.5 Immature Gran % (Auto) 0.3 Neut % (Auto) 75.6 Lymph % (Auto) 10.5 Wolfe % (Auto) 8.2 Eos % (Auto) 4.1 Baso % (Auto) 1.3 Neut # (Auto) 6.57 H Lymph # (Auto) 0.91 L Wolfe # (Auto) 0.71 H Eos # (Auto) 0.36 Baso # (Auto) 0.11 Immature Gran # (Auto) 0.03 D-Dimer 660 H* Sodium 142 Potassium 3.5 Chloride 107 Carbon Dioxide 28 Anion Gap 7 BUN 19 Creatinine 1.36 Est Cr Clr Drug Dosing 60.1 eGFR 54.61 BUN/Creatinine Ratio 14.0 Glucose 111 H Calcium 8.8 Magnesium 2.0 Total Bilirubin 1.6 H AST 18 ALT 17 Alkaline Phosphatase 104 Troponin I High Sens 19.6 B-Natriuretic Peptide 547 H Total Protein 6.7 Albumin 4.2 Globulin 2.5 Albumin/Globulin Ratio 1.7 TSH Pending Urine Color Yellow Urine Appearance Clear Urine pH 5.5 Ur Specific [place] 1.019 Urine Protein 2+ H Urine Glucose (UA) Negative Urine Ketones Trace H Urine Blood Trace H Urine Nitrite Negative Urine Bilirubin Negative Urine Urobilinogen Negative Ur Leukocyte Esterase Negative Urine WBC (Auto) 0-5 Urine RBC (Auto) 0-2 U Hyaline Cast (Auto) 0-2 U Epithel Cells (Auto) 0-2 Urine Bacteria (Auto) None Seen Digoxin 1.2 Diagnostic Findings Labs reviewed and notable for normal potassium, stable renal function, normal blood counts, normal transaminase levels, elevated BNP, normal high-sensitivity troponin. Echo report reviewed from 12/21/2020 [facility]: Dilated LV. EF 35%. Anteroseptal akinesis with distal anterior wall and apical aneurysm. Mild LVH. Dilated RV with reduced systolic function. Severe biatrial dilation. Mild AI. Severe central to posteriorly directed MR. Moderate to severe TR. Outpatient cardiology note reviewed from 01/19/2025. History and physical report reviewed. PFT report reviewed from 01/25/2025: Moderate airflow obstruction with significant postbronchodilator response. Mild restrictive physiology. Normal diffusion capacity. Nephrology note reviewed from 12/09/2024. ICD interrogation report reviewed from 12/26/2024: 71% ventricular pacing. Atrial fibrillation reported. No other events or therapies reported. Chest x-ray 02/09/2025 report reviewed: Mild bilateral perihilar vascular congestion. Medications Administered Discontinued Medications Albuterol (Albut/Ipratrop 3mg/0.5mg Neb 3 Ml Vial) 3 ml NEB NOW STA; Protocol Stop: 02/09/25 06:56 Last Admin: 02/09/25 07:00 Dose: 3 ml Documented By: MAX Furosemide (Furosemide 40 Mg/4 Ml Vial) 40 mg IV ONE ONE Stop: 02/09/25 07:31 Last Admin: 02/09/25 07:35 Dose: 40 mg Documented By: MAX PG Care Time/CCT Total # of Minutes Spent Total Time Spent with Patient: Total time spent is greater than 50% in coordination of care (as documented) at patient's floor/unit and/or counseling patient: Coding Level of Care Code 17229 INT INP/OBS CARE 3/75MIN Diagnoses Acute on chronic HFrEF (heart failure with reduced ejection fraction) I50.23 S/P ascending aortic aneurysm repair Z98.890; Z86.79 Ischemic 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 I25.5 Permanent atrial fibrillation I48.2 Mitral regurgitation I34.0 Tricuspid regurgitation I07.1 Ventricular tachycardia I47.2 Automatic implantable cardioverter-defibrillator in situ Z95.810 Essential hypertension I10 Hypertension type: essential hypertension (9) Hypertension Hypertension type: essential hypertension Qualified Code(s): I10 - Essential (primary) hypertension
[2025-02-09 10:01] LABS: Thyroid Stimulating Hormone 4.007 uIu/ml (0.300-4.500)
[2025-02-09] MEDS ORDERED: ALBUTEROL HFA 8 GM INHALER INH PRN (11:24)
[2025-02-09] MEDS ORDERED: ONDANSETRON INJ 2 MG/ML 2 ML VIAL IV PRN (11:24)
[2025-02-09] MEDS ORDERED: ACETAMINOPHEN 325 MG TAB PO PRN (11:24)
[2025-02-09] MEDS: APIXABAN 5 MG TABLET PO SCH (12:38)
[2025-02-09] MEDS: ASPIRIN 81 MG CHEW PO SCH (12:38)
[2025-02-09] MEDS: DIGOXIN 0.25 MG TAB PO SCH (12:38)
[2025-02-09] MEDS: METOPROLOL SUCC 50MG EXT REL TAB PO SCH (12:39)
[2025-02-09] MEDS: LOSARTAN POTASSIUM 50 MG TAB PO SCH (12:39)
[2025-02-09] MEDS: POTASSIUM CHLORIDE 10 MEQ TABCR PO SCH (12:41)
[2025-02-09] MEDS: SPIRONOLACTONE 25 MG TAB PO SCH (16:18)
--- NOTE | 2025-02-09 18:51 | XCELERA ---
[id number]
[2025-02-09] MEDS: ATORVASTATIN 10 MG TAB PO SCH (21:01)
[2025-02-09] MEDS: CLOBETASOL PROPIONATE 0.05% CREAM 15 GM TUBE TOP SCH (22:14)
--- NOTE | 2025-02-09 22:37 | Electrocardiogram Report ---
Test Reason : Blood Pressure : */* mmHG Vent. Rate : 72 BPM Atrial Rate : * BPM P-R Int : * ms QRS Dur : 100 ms QT Int : 376 ms P-R-T Axes : * -2 191 degrees QTcB Int : 411 ms Atrial fibrillation with frequent ventricular-paced complexes Minimal voltage criteria for LVH, may be normal variant ( Nebo product ) Abnormal ECG When compared with ECG of 27-Feb-2024 10:48, Vent. rate has decreased by 25 bpm Confirmed by Doe Carreno ([id number]) on 02/09/2025 10:36:52 PM Referred By: REFERRED SELF Confirmed By: Doe Carreno
[2025-02-10 06:41] LABS: BUN Creatinine Ratio 13.8 (10-20); Calcium 8.7 mg/dl (8.6-10.3); Creatinine Clr Calc Pharmacy 55.4 ml/min; Potassium 3.5 mmol/L (3.5-5.1)
--- NOTE | 2025-02-10 06:44 | Cardiology Progress Note ---
Date of Service February 10, 2025 Assessment & Plan (1) Acute on chronic HFrEF (heart failure with reduced ejection fraction): (2) S/P ascending aortic aneurysm repair: (3) Ischemic 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: (4) Permanent atrial fibrillation: (5) Mitral regurgitation: (6) Tricuspid regurgitation: (7) Ventricular tachycardia: (8) Automatic implantable cardioverter-defibrillator in situ: (9) Hypertension: Plan ASSESSMENT/PLAN: 1. Acute on chronic heart failure with reduced EF: NYHA class III/IV on initial presentation. Significant improvement thus far. Continue IV Lasix with a net negative fluid balance goal of 1 L today. Anticipate possible transition to oral diuretic tomorrow. Monitor renal function closely. Would recommend Lasix 40 mg p.o. daily to start with and then can adjust based on clinical response. Replaced losartan with Entresto. Continue metoprolol succinate. Agree with discontinuation of diltiazem. Started spironolactone 25 mg daily. Can initiate SGLT2 inhibitor today. Low-sodium diet, less than 2000 mg daily. Strict I's and O's. Daily weights. Heart failure program. 2. Ischemic 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: Moderately to severely reduced LV systolic function on repeat echo. Chronic. ICD in place. Medical therapy as above. 3. Atrial fibrillation: Permanent per records. Continue beta-jefferson. On digoxin chronically, which can be continued for now. Monitor levels and try to maintain level less than 1. Continue anticoagulation for stroke risk reduction. Monitor CBC. 4. Mitral and tricuspid regurgitation: Nonsevere on 02/09/2025 echo. Can monitor in the outpatient setting. Described as more severe in the past [facility] [place]. 5. CAD: Occluded distal LAD per records, felt to be embolic following aortic surgery. Risk factor modification. 6. Hypertension: Blood pressure elevated consistently here. Entresto and spironolactone started less than 24 hours ago. Continue diuresis. Entresto can be further titrated in the near future. Could consider replacing metoprolol with high dose carvedilol if blood pressure does not further improve. 7. ICD: Managed by electrophysiology. 8. Ventricular tachycardia s/p ablation x 2 (2019): Underwent ablation per records. ICD in place. Not requiring antiarrhythmic therapy. 9. Disposition: Likely ready for discharge from a heart failure standpoint later today or tomorrow. If he remains hospitalized and further cardiology guidance is needed, please call on-call pearl restorer, Dr. Retana. Heart failure program on discharge (being arranged). Follow-up with primary pearl restorer, Dr. Gonzalez. Patient care communicated with primary hospitalist, Dr. Bellamy. Admission and Anticipated Discharge Date Admission Date: February 09, 2025 Subjective Patient seen this morning. He denies orthopnea, PND, supine coughing or wheezing. He is doing much better in that regard. He still has mild dyspnea on exertion with ambulation to the bathroom, not quite back to baseline. He denies chest pain, syncope, near syncope, palpitations, or bleeding. He was unaccompanied. Physical Exam Physical Exam: Gen.: No acute distress. Alert and oriented. HEENT: Anicteric sclera. Neck: No appreciable JVD or hepatojugular reflux. Cardiac: Irregularly irregular. Normal S1-S2. 2/6 holosystolic murmur best heard at the apex and radiates to the left axilla. Pulmonary: Clear to auscultation bilaterally without wheezes, rales, or rhonchi. Abdomen: Soft, nontender, nondistended, with normoactive bowel sounds. No bruits noted. Extremities: 2+ radial pulses bilaterally. 2+ posterior tibialis pulses bilaterally. No edema. No cyanosis. Results & Data Vital Signs (Past 12 Hours) Vital Signs Temp Pulse Pulse Resp BP Pulse Ox O2 Del Method 02/10/25 02:34 36.7 C 72 18 163/96 H 92 Room Air 02/09/25 23:15 36.7 C 73 17 151/97 H 92 Room Air 02/09/25 22:37 70 02/09/25 19:00 37.1 C 75 20 161/102 H 93 Room Air Intake & Output 02/07/25 02/08/25 02/09/25 02/10/25 06:59 06:59 06:59 06:59 Intake Total 720 / 720 Output Total 3676 / 3676 Balance -2956 / -2956 Weight 227 lb 1.218 oz 219 lb 2.232 oz Laboratory Results Laboratory Results - last 24 hr 02/09/25 02/09/25 02/10/25 06:18 06:19 05:29 WBC 8.69 RBC 5.25 Hgb 14.8 Hct 42.9 MCV 81.7 MCH 28.2 MCHC 34.5 RDW Std Deviation 42.8 RDW Coeff of Lorrie 14.6 H Plt Count 207 MPV 11.5 Immature Gran % (Auto) 0.3 Neut % (Auto) 75.6 Lymph % (Auto) 10.5 Kershaw % (Auto) 8.2 Eos % (Auto) 4.1 Baso % (Auto) 1.3 Neut # (Auto) 6.57 H Lymph # (Auto) 0.91 L Kershaw # (Auto) 0.71 H Eos # (Auto) 0.36 Baso # (Auto) 0.11 Immature Gran # (Auto) 0.03 D-Dimer 660 H* Sodium 142 144 Potassium 3.5 3.5 Chloride 107 108 H Carbon Dioxide 28 30 Anion Gap 7 6 BUN 19 20 Creatinine 1.36 1.45 H Est Cr Clr Drug Dosing 60.1 55.4 eGFR 54.61 50.57 BUN/Creatinine Ratio 14.0 13.8 Glucose 111 H 88 Calcium 8.8 8.7 Magnesium 2.0 Total Bilirubin 1.6 H AST 18 ALT 17 Alkaline Phosphatase 104 Troponin I High Sens 19.6 B-Natriuretic Peptide 547 H Total Protein 6.7 Albumin 4.2 Globulin 2.5 Albumin/Globulin Ratio 1.7 TSH 4.007 Urine Color Yellow Urine Appearance Clear Urine pH 5.5 Ur Specific Ware 1.019 Urine Protein 2+ H Urine Glucose (UA) Negative Urine Ketones Trace H Urine Blood Trace H Urine Nitrite Negative Urine Bilirubin Negative Urine Urobilinogen Negative Ur Leukocyte Esterase Negative Urine WBC (Auto) 0-5 Urine RBC (Auto) 0-2 U Hyaline Cast (Auto) 0-2 U Epithel Cells (Auto) 0-2 Urine Bacteria (Auto) None Seen Digoxin 1.2 Diagnostic Findings Labs reviewed and notable for normal potassium, stable renal function. Telemetry personally reviewed: Atrial fibrillation with ventricular paced complexes. Echo 02/09/2025: Dilated LV. EF 30-35%. Large apical aneurysm. Akinesis of the mid inferior wall. Hypokinesis of the septum, anteroseptum, mid inferolateral, mid anterolateral wall segments. Septal motion consistent with pacemaker. Moderate LVH. Mildly dilated RV with reduced systolic function. Severe biatrial dilation. Mild AI. At least moderate MR. Mild to moderate TR. RVSP 55. Ascending aorta 4.7. Medications Administered Current Inpatient Medications Acetaminophen (Acetaminophen 325 Mg Tab) 650 mg PO Q6H PRN PRN Reason: Pain Stop: 03/11/25 11:23 Albuterol (Albuterol Hfa 8 Gm Inhaler) 2 puffs INH QID PRN PRN Reason: shortness of breath or wheezing Stop: 03/11/25 11:23 Apixaban (Apixaban 5 Mg Tablet) 5 mg PO BID JOSAFAT Stop: 03/11/25 11:23 Last Admin: 02/09/25 21:01 Dose: 5 mg Aspirin (Aspirin 81 Mg Chew) 81 mg PO DAILY JOSAFAT Stop: 03/11/25 11:23 Last Admin: 02/09/25 12:38 Dose: 81 mg Atorvastatin Calcium (Atorvastatin 10 Mg Tab) 10 mg PO QPM JOSAFAT Stop: 03/11/25 20:59 Last Admin: 02/09/25 21:01 Dose: 10 mg Clobetasol Propionate (Clobetasol Propionate 0.05% Cream 15 Gm Tube) 1 appln TOP BID JOSAFAT Stop: 03/11/25 20:59 Last Admin: 02/09/25 22:14 Dose: 1 appln Digoxin (Digoxin 0.25 Mg Tab) 0.25 mg PO QAM [facility] Stop: 03/11/25 11:23 Last Admin: 02/09/25 12:38 Dose: 0.25 mg Furosemide (Furosemide 40 Mg/4 Ml Vial) 40 mg IV QAM [facility] Stop: 03/12/25 08:59 Metoprolol Succinate (Metoprolol Succ 50mg Ext Rel Tab) 200 mg PO BID [facility] Stop: 03/11/25 11:23 Last Admin: 02/09/25 21:02 Dose: 200 mg Ondansetron HCl (Ondansetron Inj 2 Mg/Ml 2 Ml Vial) 4 mg IV Q6H PRN PRN Reason: Nausea Stop: 03/11/25 11:23 Potassium Chloride (Potassium Chloride 10 Meq Tabcr) 20 meq PO BID JOSAFAT Stop: 03/11/25 11:23 Last Admin: 02/09/25 21:06 Dose: 20 meq Sacubitril/Valsartan (Valsartan/Sacubitril 51/49 Mg Tab) 1 tab PO BID [facility] Stop: 03/12/25 08:59 Spironolactone (Spironolactone 25 Mg Tab) 25 mg PO QAM [facility] Stop: 03/11/25 15:14 Last Admin: 02/09/25 16:18 Dose: 25 mg PG Care Time/CCT Total # of Minutes Spent Total Time Spent with Patient: Total time spent is greater than 50% in coordination of care (as documented) at patient's floor/unit and/or counseling patient: Coding Level of Care Code 87700 SUB INP/OBS CARE 3/50MIN Diagnoses Acute on chronic HFrEF (heart failure with reduced ejection fraction) I50.23 S/P ascending aortic aneurysm repair Z98.890; Z86.79 Ischemic 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 I25.5 Permanent atrial fibrillation I48.2 Mitral regurgitation I34.0 Tricuspid regurgitation I07.1 Ventricular tachycardia I47.2 Automatic implantable cardioverter-defibrillator in situ Z95.810 Essential hypertension I10 Hypertension type: essential hypertension (9) Hypertension Hypertension type: essential hypertension Qualified Code(s): I10 - Essential (primary) hypertension
[2025-02-10] MEDS: FUROSEMIDE 40 MG/4 ML VIAL IV SCH (08:30)
[2025-02-10] MEDS: VALSARTAN/SACUBITRIL 51/49 MG TAB PO SCH (08:31)
--- NOTE | 2025-02-10 19:53 | Hospitalist Progress Note ---
Date of Service February 10, 2025 Assessment & Plan (1) Acute on chronic systolic heart failure: (2) HFrEF (heart failure with reduced ejection fraction): (3) Hypertension: (4) Automatic implantable cardioverter-defibrillator in situ: (5) History of ventricular tachycardia: (6) Moderate to severe mitral regurgitation: (7) Severe tricuspid regurgitation: (8) BPH (benign prostatic hyperplasia): (9) Ischemic 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: (10) S/P ascending aortic aneurysm repair: (11) Chronic kidney disease, stage III (moderate): (12) Esophageal reflux: (13) Permanent atrial fibrillation: Plan 74yo male with complex cardiac history including permanent atrial fibrillation on Eliquis, s/p aortic root replacement 2019 for 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 Patient with evidence of pulm edema/decompensated CHF upon presentation. #acute/chronic systolic CHF - * improved volume status with stable BMP * cont lasix 40mg IV daily * repeat BMP am * appreciate consult by Dr Carreno, [facility] [place] [facility] * echo this admission - EF 30-35%; ascending aorta - 4.7cm; valvular disease is mild * cont meto succ 200mg BID * diltiazem stopped since it is contraindicated given his systolic CHF * losartan stopped; Entresto BID added * Jardiance 10mg daily initiated * spironolactone 25mg daily initiated * follow labs, BPs, etc. #ICD/pacemaker with prior h/o VT - * cont meto succ BID * device interrogation requested - pending #permanent a.fib - * cont Eliquis BID * cont meto succ BID * cont dig; level noted to be acceptable * stopped diltiazem #h/o aortic dissection s/p aortic root replacement - * root remains dilated in the face of prior surgery * [place] cardiology/CT surgery have told him, however, that the root has been stable for several years * echo this admission with ascending aorta measuring 4.7cm * cont BP control with meto succ & other meds * he has no symptoms to suggest recurrent dissection #CKD stage 3a - * daily BMP in the face of diuresis * follows with [facility] [place] [facility]; has f/u with Dr aCdena next week #Apne[place] - * noted by his during sleep but no snoring * this may be central sleep apnea * sleep study later this spring is already scheduled #valvular heart disease - * moderate MR * mild-moderate TR * optimize volume status, etc. #HTN - * losartan stopped; Entresto added * diltiazem stopped; contraindicated with his systolic CHF * aldactone 25mg added * cont meto succ BID * hopefully BPs improve further with diuresis and with the above meds added #h/o TIA - * cont asa * cont Eliquis BID #DVT proph - * Eliquis pt's updated at bedside appreciate Dr Carreno's assistance probable d/c on 02/11 Admission and Anticipated Discharge Date Admission Date: February 09, 2025 Subjective tele - pacing with underlying a.fib feels better minimal dyspnea on exertion no PND or orthopnea or nocturnal wheezing no new complaints Review of Systems Review of Systems: CV - no chest pain, no edema pulm - no wheezing or cough Physical Exam Physical Exam: gen - NAD, resting comfortably in bed, pleasant, looks great neck - mild JVD improved heart - irregular, s1 s2, 2/6 holosystolic murmur LLSB with radiation to L axillae lungs - scant dry rales lowest portion of both bases; no wheeze; no increased work of breathing abd - soft NT ND BS+; no HSM ext - no peripheral edema, pulses b/l feet 2+ Results & Data Results & Data Vital Signs (Past 12 Hours) Vital Signs Temp Pulse Pulse Resp BP BP Pulse Ox 02/10/25 19:39 36.4 C L 79 20 132/90 93 02/10/25 15:40 36.4 C L 72 18 139/94 92 02/10/25 11:38 36.6 C 74 18 156/96 H 94 02/10/25 10:11 02/10/25 08:30 70 02/10/25 08:08 36.7 C 79 18 177/119 H 187/141 H 93 O2 Del Method 02/10/25 19:39 Room Air 02/10/25 15:40 Room Air 02/10/25 11:38 Room Air 02/10/25 10:11 Room Air 02/10/25 08:30 02/10/25 08:08 Room Air Laboratory Results Laboratory Results - last 24 hr 02/10/25 05:29 Sodium 144 Potassium 3.5 Chloride 108 H Carbon Dioxide 30 Anion Gap 6 BUN 20 Creatinine 1.45 H Est Cr Clr Drug Dosing 55.4 eGFR 50.57 BUN/Creatinine Ratio 13.8 Glucose 88 Calcium 8.7 PG Care Time/CCT Total # of Minutes Spent Total Time Spent with Patient: Total time spent is greater than 50% in coordination of care (as documented) at patient's floor/unit and/or counseling patient: Coding Level of Care Code 77920 SUB INP/OBS CARE 2/35MIN Diagnoses Acute on chronic systolic heart failure I50.23 HFrEF (heart failure with reduced ejection fraction) I50.20 Essential hypertension I10 Hypertension type: essential hypertension Automatic implantable cardioverter-defibrillator in situ Z95.810 History of ventricular tachycardia Z86.79 Moderate to severe mitral regurgitation I34.0 Severe tricuspid regurgitation I07.1 BPH (benign prostatic hyperplasia) N40.0 Ischemic 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 I25.5 S/P ascending aortic aneurysm repair Z98.890; Z86.79 Chronic kidney disease, stage III (moderate) N18.3 Esophageal reflux K21.9 Permanent atrial fibrillation I48.2 (3) Hypertension Hypertension type: essential hypertension Qualified Code(s): I10 - Essential (primary) hypertension
[2025-02-11 03:03] VITALS: O2SAT 94
[2025-02-11 06:08] LABS: BUN Creatinine Ratio 17.9 (10-20); Calcium 8.5 mg/dl (8.6-10.3); Creatinine Clr Calc Pharmacy 51.5 ml/min; Potassium 3.6 mmol/L (3.5-5.1)
[2025-02-11] MEDS: EMPAGLIFLOZIN 10 MG TAB PO SCH (08:22)
[2025-02-11 11:30] VITALS: PULSE 58; RESP 18; TEMP 97.5
--- NOTE | 2025-02-11 13:14 | Discharge Summary ---
Discharge Summary Date of Service date of admission - February 09, 2025 date of discharge - February 11, 2025 Principal Dx & Hospital Course #1 = Principal Diagnosis (1) Acute on chronic systolic heart failure: (2) HFrEF (heart failure with reduced ejection fraction): (3) Hypertension: (4) Automatic implantable cardioverter-defibrillator in situ: (5) History of ventricular tachycardia: (6) Moderate to severe mitral regurgitation: (7) Severe tricuspid regurgitation: (8) BPH (benign prostatic hyperplasia): (9) Ischemic 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: (10) S/P ascending aortic aneurysm repair: (11) Chronic kidney disease, stage III (moderate): (12) Esophageal reflux: (13) Permanent atrial fibrillation: Plan 74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, 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 Patient had evidence of pulm edema/decompensated CHF upon presentation. #acute/chronic systolic CHF - * pre-admission was not on standing diuretics at home * had excellent diuresis during this hospitalization with IV lasix * seen by [facility] Cardiology - Dr Cameron Carreno - who provided watson recommendations for his CHF management * echo this admit - EF 30-35%, previous severe MR/TR on prior echos was not seen on this echo (moderate disease at most) * diltiazem stopped - relatively contraindicated given his systolic CHF * losartan stopped since Entresto was added * Entresto 49/51mg BID added * Aldactone 25mg daily added * Jardiance 10mg daily added * At discharge advised lasix 40mg qam (bumex stopped) * Also at discharge advised lowering K supplement to 20meq daily * Continued on metoprolol succinate 200mg BID as previous * discharge weight 98kg (down from 103kg) * daily weights, fluid restriction, salt restriction all discussed with patient & his prior to discharge home * written CHF discharge instructions also given * he will follow-up with the [facility] CHF clinic shortly after discharge * he will also need repeat BMP and magnesium for stability at that first appointment #dyspnea/orthopnea/PND - * although recent PFTs indeed showed moderate obstruction he had little improvement in symptoms with addition of Advair * thus, current symptoms were likely CHF-related / pulmonary edema related * all pulmonary symptoms RESOLVED with diuresis * o2 sats on day of discharge were mid 90s in room air with activity * see above #ICD/pacemaker with prior h/o VT - * no VT seen while here * has permanent a.fib and this was the predominant rhythm while here * rates were controlled #permanent a.fib - * cont Eliquis BID * cont meto succ BID * cont digoxin; level noted to be acceptable at 1.2 * stopped diltiazem #h/o aortic dissection s/p aortic root replacement - * root remains dilated in the face of prior surgery * [facility]/CT surgery have told him, however, that the root has been stable for several years * echo this admission showed the ascending aorta was 4.7cm in diameter * cont BP control with meto succ & other meds * he has had no symptoms to suggest recurrent dissection #CKD stage 3a - * follows with [facility] Nephrology * creatinine was 1.3 to 1.5 while here * will need repeat BMP within the week following discharge due to the addition of Entresto 49/51mg BID, aldactone 25mg daily, and lasix 40mg daily #apneas - * noted by his during sleep but no snoring * this may be central sleep apnea * sleep study later this spring is already scheduled #valvular heart disease - * echo this admission with moderate MR and mild-moderate TR * no Rx needed at this time other than BP control, etc. #HTN - * losartan stopped; Entresto twice daily added * diltiazem stopped; contraindicated with his systolic CHF * aldactone daily added * lasix 40mg daily added * cont meto succ BID * BPs improved significantly with the above medicines #h/o TIA - * cont asa and Eliquis BID for secondary prevention Notes For Next Care Provider Medication Changes From Visit 1. STOPPED: * diltiazem * losartan * advair * bumex 2. STARTED: * Entresto 49/51mg BID * Aldactone 25mg daily * Jardiance 10mg daily * Lasix 40mg qam 3. 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 Has been evaluated as an outpatient by pulmonary/nephrology/cardiology in the last 6 weeks and it was felt that his symptoms were not-CHF related as he was not examining in CHF and his weights at home had been stable. Patient had tried bumex about 2 months ago at home but he did not notice any improvement in his nocturnal symptoms. He ultimately was referred for PFTs which showed moderate obstruction & mild restrictive lung disease. A trial of Advair did not alter or improve his pulmonary symptoms. He mentions he is scheduled for a sleep study later in the spring. He denies any peripheral edema or abdominal bloating. Denies weight gains. Over the last few nights he had to prop himself with pillows to breath, and during the same time frame has had worsening dyspnea on exertion with walking up stairs, etc. Denies any cough or URI symptoms or infectious symptoms. Appetite has been excellent. No recent heavy salted foods or excessive fluid intake. He is compliant with all medicines. Does not check BPs at home. Since arriving to the ER and receiving IV lasix 40mg x 1 he has voided at least 5 times with improvement in his dyspnea on exertion and his orthopnea. He has not required any supplemental O2 since arrival to the ER. Discharge Exam gen - NAD, resting comfortably in bed, pleasant HENT - mouth with MMM neck - JVD resolved heart - irregular, rate <100, s1 s2, 2-3/6 holosystolic murmur LLSB with radiation to L axillae lungs - CTA b/l, no rales, no wheeze, normal airation abd - soft NT ND BS+; no HSM ext - no peripheral edema, pulses b/l feet 2+ psych - a/o x 3 Discharge Plan Discharge Items Patient Disposition: Home - Self-Care Reason For Visit: ACUTE/CHRONIC SYSTOLIC CHF Discharge Diagnosis: 1. fluid overload/wheezing/shortness of breath -- due to congestive heart failure - much improved 2. chronic systolic congestive heart failure - ejection fraction 30-35% 3. dilated ascending aorta - 4.7cm in size 4. mild-moderate valvular disease on echocardiogram 5. history of ventricular tachycardia with ICD in place 6. atrial fibrillation on Eliquis 7. high blood pressure Activity: Resume your previous activity Activity Comment: walking, light activities are permissible Non-emergency contact: Primary Care Provider, Drying Room Attendant and Telephone Information Clerk Call non-emergency contact if: you have any medication questions and your symptoms worsen Follow-up/Referrals: Bill Cadena MD [Physician] - 02/13/25 (keep previously scheduled appointment with Dr Cadena ) Andria Mckeon MD [Primary Care Provider] - Vidhya Zapata, SANAZC [Physician Puller Over] - 02/16/25 10:30 am Diet: Low Sodium (2gm) Fluids: 1800ml (7 cups) Addtl Attending Provider Instructions: Mr Vance, You were hospitalized due to difficulty breathing and night-time wheezing. This was due to fluid build-up in the lungs as a result of your congestive heart failure. You received IV furosemide (lasix) during your stay with excellent results. You have lost a considerable amount of weight. You are down to about 215 pounds on 02/11/25. This weight might vary from the weight you get on your home scale. Dr Cameron Carreno saw you from [facility] cardiology and recommended a series of new congestive heart failure medicines to try and help your heart work more efficiently & improve its pumping ability. You have tolerated these new medicines well. Several of the medicines are actually for blood pressure control as well and your blood pressures indeed improved nicely while here. Recommendations - 1. STOP your diltiazem. 2. STOP your losartan. 3. START spironolactone 25mg once daily; first dose AM of 02/12/25. This is a diuretic (water pill) that helps with fluid, heart failure, and blood pressure. 4. START Entresto 1 tablet twice daily; first dose PM of 02/11/25. This medicine is for congestive heart failure. 5. START Jardiance 1 tablet once daily; first dose AM of 02/12/25. This medicine is for congestive heart failure. 6. START furosemide 40mg once daily each morning. Take your first dose on 02/13/25. This is a diuretic that helps with keeping excess fluid out of your body from the congestive heart failure. 7. LOWER your potassium to 20meq once daily. You can take this today at home. 8. Please do not take any bumex (bumetanide) diuretic since you will be taking furosemide. 9. Keep a log of your daily morning weights as previous. If you gain more than 2-3 pounds over 1-2 days please contact the cardiology office for guidance. 10. Watch your salt intake; limit salt to about 2000mg in a 24-hour period. 11. Limit your fluid intake to about 1800ml or less each 24-hour period. 12. You will need blood work next week to recheck your kidney function and electrolytes. Dr Cadena or Ms Zapata can do this for you. Follow-up - see separate section Return to [facility] if - * you have worsening shortness of breath * you have chest pains * your defibrillator fires & shocks you * any other concerns It was our pleasure to care for you! -Dr Bellamy Addtl Marble Helper Provider Instructions: Additional Congestive Heart Failure Instructions: Call 911 and go to the Emergency Room if: * You have tightness or pain in your chest that does not go away with rest or Nitroglycerin * You are very short of breath even with rest Call your doctor if any of the following symptoms or problems start or get worse: * Shortness of breath or difficulty breathing * Wake up at night short of breath * Chest pain * Cough * Swelling of your hands, fee, or legs * More fatigued or tired with your normal activity * Palpitations - sudden fast heart beats WEIGHT * Weigh yourself every morning after using the bathroom. * Use the same scale. * Wear the same amount of clothing. * Write your weight down on your chart. * Call your doctor if you gain more than 2-3 pounds in 1-2 days. MEDICATIONS * Use this discharge instruction sheet for instructions. * Take your medications at the time your doctor ordered. * Do not skip a dose of your medicines. * If you miss a dose of medicine, take as soon as possible, but DO NOT DOUBLE A DOSE. * Read your medicine information when you get home. * Know all of the side effects of your medicine. * Call your doctor's office if you have any side effects. * Be sure all of your doctors know what medicine and herbs you take (including cold, flu, and herbal medicine). * Pain Medicine: If you do not get relief from your pain, please call your doctor for help. Take the following with you to your follow-up doctor appointments: * Weight Chart * Medication List * List of questions Do not drink excessive alcohol, beer or wine. Occasional glass of wine is ok. Pending Studies at Discharge: No Stand-Alone Forms: My [facility] [employer], Smoking Cessation Medications and DC Order Prescriptions: New spironolactone 25 mg Tablet 25 mg PO QAM Qty: 30 5RF Rx Instructions: for fluid and congestive heart failure Jardiance 10 mg Tablet 10 mg PO DAILY Qty: 30 5RF Rx Instructions: for congestive heart failure Entresto 49-51 mg Tablet 1 tab PO BID Qty: 60 5RF Rx Instructions: for congestive heart failure furosemide [Lasix] 40 mg tablet 40 mg PO QAM Qty: 30 5RF Hold Instructions: not taking Rx Instructions: for fluid/congestive heart failure Continued digoxin 250 mcg (0.25 mg) tablet 250 mcg PO QAM Qty: 90 3RF apixaban 5 mg tablet 5 mg PO BID Qty: 180 3RF atorvastatin 10 mg tablet 10 mg PO QPM Qty: 90 3RF Rx Instructions: after dinner metoprolol succinate 200 mg tablet extended release 24 hr 200 mg PO BID Qty: 180 3RF acetaminophen [Tylenol] 325 mg tablet 650 mg PO Q6H PRN (Reason: Pain) Patient Comments: takes before bedtime with melatonin aspirin 81 mg tablet,chewable 81 mg PO DAILY Qty: 30 2RF clobetasol 0.05 % cream 1 applic TOPICAL BID Changed potassium chloride 10 mEq capsule, extended release 20 meq PO DAILY Qty: 270 3RF Discontinued diltiazem HCl [Taztia XT] 120 mg capsule,extended release 24 hr 120 mg PO BID Qty: 180 3RF losartan 50 mg tablet 50 mg PO DAILY Qty: 90 3RF bumetanide 1 mg tablet 1 mg PO DAILY PRN (Reason: Fluid Retention) No Action bumetanide 1 mg tablet 1 mg PO DAILY PRN (Reason: Fluid Retention) Qty: 1 0RF Discharge Orders: Discharge Order (Routine); Ordered 02/11/25 Ordered By: Elver Kaey/Other Patient Handouts: What Is Heart Failure, ED Low-Salt Diet Admission Data Admit Date/Time: 02/09/25 09:17 Attending Provider: Elver Bellamy Admit Provider: Elver Bellamy Primary Care Provider: Andria Mckeon V. Other Providers: Doe Carreno Other Interventions: Discharge Summary Assessment (RN) Last Done: 02/11/25 13:47 Hospital Stay Data Consultations [facility] Cardiology [facility] CHF Program Referral Procedures Performed Echocardiogram: Diagnostic Imagining Performed Chest X-Ray 02/09/25 05:56 EXAM: XR chest 1V portable CLINICAL HISTORY: Dyspnea. TECHNIQUE: An X-ray image of the chest is obtained in AP projection. COMPARISON: 10/20/2024 X-ray chest. FINDINGS: Pulmonary Parenchyma: Mild bilateral parahilar vascular congestion. No evidence of consolidation, collapse, or focal opacities. No pulmonary nodules are identified. No evidence of pleural effusion or pleural thickening. Heart and Mediastinum: Moderate cardiomegaly. No mediastinal widening or masses. No hilar or mediastinal lymphadenopathy. Bony Thorax: The bony thorax appears intact without fractures or deformities. Soft Tissues: Soft tissues overlying the chest wall are unremarkable. Intact midline sternotomy sutures. Cardiac pacemaker in place. IMPRESSION: 1. Mild bilateral parahilar vascular congestion. 2. Moderate cardiomegaly. 3. Cardiac pacemaker in place. 4. Findings are stable. Electronically signed by Sanford Baron 02-09-2025 07:02 AM Pending Results Patient Have Any Pending Studies at Discharge: No Discharge Instructions Given to Patient (Per Discharging Provider) Mr Vance, You were hospitalized due to difficulty breathing and night-time wheezing. This was due to fluid build-up in the lungs as a result of your congestive heart failure. You received IV furosemide (lasix) during your stay with excellent results. You have lost a considerable amount of weight. You are down to about 215 pounds on 02/11/25. This weight might vary from the weight you get on your home scale. Dr Cameron Carreno saw you from [facility] cardiology and recommended a series of new congestive heart failure medicines to try and help your heart work more efficiently & improve its pumping ability. You have tolerated these new medicines well. Several of the medicines are actually for blood pressure control as well and your blood pressures indeed improved nicely while here. Recommendations - 1. STOP your diltiazem. 2. STOP your losartan. 3. START spironolactone 25mg once daily; first dose AM of 02/12/25. This is a diuretic (water pill) that helps with fluid, heart failure, and blood pressure. 4. START Entresto 1 tablet twice daily; first dose PM of 02/11/25. This medicine is for congestive heart failure. 5. START Jardiance 1 tablet once daily; first dose AM of 02/12/25. This medicine is for congestive heart failure. 6. START furosemide 40mg once daily each morning. Take your first dose on 02/13/25. This is a diuretic that helps with keeping excess fluid out of your body from the congestive heart failure. 7. LOWER your potassium to 20meq once daily. You can take this today at home. 8. Please do not take any bumex (bumetanide) diuretic since you will be taking furosemide. 9. Keep a log of your daily morning weights as previous. If you gain more than 2-3 pounds over 1-2 days please contact the cardiology office for guidance. 10. Watch your salt intake; limit salt to about 2000mg in a 24-hour period. 11. Limit your fluid intake to about 1800ml or less each 24-hour period. 12. You will need blood work next week to recheck your kidney function and electrolytes. Dr Cadena or Ms Zapata can do this for you. Follow-up - see separate section Return to [facility] if - * you have worsening shortness of breath * you have chest pains * your defibrillator fires & shocks you * any other concerns It was our pleasure to care for you! -Dr Bellamy Total Time Total Time Spent Total Time Spent (In Minutes): 50 Coding Level of Care Code 71130 INP/OBS DISCH >30 MIN Diagnoses Acute on chronic systolic heart failure I50.23 HFrEF (heart failure with reduced ejection fraction) I50.20 Essential hypertension I10 Hypertension type: essential hypertension Automatic implantable cardioverter-defibrillator in situ Z95.810 History of ventricular tachycardia Z86.79 Moderate to severe mitral regurgitation I34.0 Severe tricuspid regurgitation I07.1 BPH (benign prostatic hyperplasia) N40.0 Ischemic 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 I25.5 S/P ascending aortic aneurysm repair Z98.890; Z86.79 Chronic kidney disease, stage III (moderate) N18.3 Esophageal reflux K21.9 Permanent atrial fibrillation I48.2
[2025-02-11 13:49] VITALS: BP 138/88
== END 2025-02-11 13:48 | disposition home or self-care (01) | DRG 291 ==
LOC: ED 05:12 → 4W 09:17